=== PATIENT | male | born 1970 | race Caucasian/White ===

== ENCOUNTER 2019-10-26 13:11 | Inpatient (IN) | payer OTHER ==
--- NOTE | 2019-10-26 13:31 | BHS.RME ---
Substance Use & Tx History - Substance Use History Opiates (Heroin) Substance amount: 7 bags Frequency of use: Daily Substance route: Injection (ex: intravenous or skin popping) Date of Last Use: 10/25/19 Cocaine (Crack) Substance amount: $200 Frequency of use: Daily Substance route: Injection (ex: intravenous or skin popping) Date of Last Use: 10/25/19 Physical/Psych/Mental Status - Behavior Eye Contact: Normal - Cooperativeness Cooperativeness: Cooperative - Thinking Thought Processes: Tight Thought content: Future oriented - Physical Health Problems Is patient presently having any pain?: Yes (diffuse aches) Does patient presently have any injuries (include location): No Does patient currently have a fever: No Is patient : No COWS - Scale Resting Pulse: 1= ND 81-100 Sweatin=Flushed/Facial Moisture Restless Observation: 1= Difficult to Sit Still Pupil Size: 0= Normal to Room Light Bone or Joint Aches: 2= Severe Diffuse Aches Runny Nose/ Eye Tearin= Runny Nose/Eyes GI Upset > 30mins: 1= Stomach Cramp Tremor Observation: 2= Slight Tremor Visible Yawning Observation: 0= None Anxiety or Irritability: 0= None Goose Flesh Skin: 0=Smooth Skin COWS Score: 11 CIWA Nausea/Vomitin
[2019-10-26 14:41] VITALS: BMI 27.4
--- NOTE | 2019-10-26 15:11 | HP ---
COWS - Scale Resting Pulse: 1= [place] 81-100 Sweatin=Flushed/Facial Moisture Restless Observation: 1= Difficult to Sit Still Pupil Size: 1= Pupils >than Normal Bone or Joint Aches: 2= Severe Diffuse Aches Runny Nose/ Eye Tearin= Runny Nose/Eyes GI Upset > 30mins: 2= Nausea/Diarrhea Tremor Observation: 2= Slight Tremor Visible Yawning Observation: 0= None Anxiety or Irritability: 2=Irritable/Anxious Goose Flesh Skin: 0=Smooth Skin COWS Score: 15 CIWA Score Nausea/Vomitin - Admission Criteria [facility] Guidelines: Admission for Medically Managed Detox: Requires at least one of the followin. CIWA greater than 12 2. Seizures within the past 24 hours 3. Delirium tremens within the past 24 hours 4. Hallucinations within the past 24 hours 5. Acute intervention needed for co occurring medical disorder 6. Acute intervention needed for co occurring psychiatric disorder 7. Severe withdrawal that cannot be handled at a lower level of care (continued vomiting, continued diarrhea, abnormal vital signs) requiring intravenous medication and/or fluids 8. Admitting History and Physical - Admission Chief Complaint: I need to stop using heroin , I can't keep doing this. History of Present Illness: 49 y/o m pt who started using heroin at age 16 in [place]. Pt has been using 2 bundles of heroin IV /day The pt is also using between $2-300/day iv. The pt states he is not f/up with HIV tx he is just getting high and needs to stop this life style., History Source: Patient Limitations to Obtaining History: No Limitations - Past Medical History Pulmonary: Yes: Other (cough) Renal/: Yes: Cancer (renal) Infectious Disease: Yes: AIDS, Other (HCV) Psych: Yes: Addictions, Depression - Past Surgical History Additional Past Surgical History: rt renal surgery - no nephrectomy - Smoking History Smoking history: Current every day smoker Have you smoked in the past 12 months: Yes Aproximately how many cigarettes per day: 20 - Alcohol/Substance Use Hx Alcohol Use: No - Social History Usual Living Arrangement: Yes: Alone Do you think of yourself as: Straight/Heterosexual ADL: Independent History of Recent Travel: No Admission ROS BHS - HPI Chief Complaint: I need help to stop using heroin and cocaine . m Allergies/Adverse Reactions: Allergies Allergy/AdvReac Type Severity Reaction Status Date / Time No Known Allergies Allergy Verified 10/26/19 14:20 History of Present Illness: see HPI Exam Limitations: No Limitations - Ebola screening Have you traveled outside of the country in the last 21 days: No - Review of Systems Constitutional: Malaise EENT: reports: Hearing Loss (on left) Respiratory: reports: Cough, Productive cough (yellowish phlegm) Cardiac: reports: No Symptoms Reported GI: reports: Nausea, Abdominal cramping Musculoskeletal: reports: Back Pain, Joint Pain, Muscle Weakness Integumentary: reports: Sweating Neuro: reports: No Symptoms reported Endocrine: reports: No Symptoms Reported Hematology: reports: No Symptoms Reported Psychiatric: reports: Depressed Other Systems: Reviewed and Negative Patient History - Patient Medical History Hx Anemia: No Hx Asthma: No Hx Chronic Obstructive Pulmonary Disease (COPD): No Hx Cancer: Yes (2016- rt kidney ca ) Hx Cardiac Disorders: No Hx Congestive Heart Failure: No Hx Hypertension: No Hx Hypercholesterolemia: No Hx Pacemaker: No HX Cerebrovascular Accident: No Hx Seizures: No Hx Dementia: No Hx Diabetes: No Hx Gastrointestinal Disorders: No Hx Liver Disease: No Hx Genitourinary Disorders: Yes (rt kidney ca ) Hx Sexually Transmitted Disorders: No Hx Renal Disease (ESRD): Yes (see above ) Hx Thyroid Disease: No Hx Human Immunodeficiency Virus (HIV): Yes (dx in 1994- no meds x 4 months , genvoya ) Hx Hepatitis C: Yes (2015 tx'ed can't recall med. ) Hx Depression: Yes (no tx x several years ) Hx Suicide Attempt: No Hx Bipolar Disorder: No Hx Schizophrenia: No - Patient Surgical History Hx Genitourinary Surgery: Yes (rt kidney ) - PPD History Previous Implant?: Yes Documented Results: Negative w/o proof - Reproductive History Patient is a Female of Child Bearing Age (11 -55 yrs old): No - Smoking Cessation Smoking history: Current every day smoker Have you smoked in the past 12 months: Yes Aproximately how many cigarettes per day: 20 Cigars Per Day: 0 Hx Chewing Tobacco Use: No Initiated information on smoking cessation: Yes 'Breaking Loose' booklet given: 10/26/19 - Substance & Tx. History Hx Alcohol Use: No Hx Substance Use: Yes Substance Use Type: Cocaine, Heroin Hx Substance Use Treatment: No - Substances abused Cocaine Substance route: Injection Frequency: Daily Amount used: $200-300 Age of first use: 16 Date of last use: 10/26/19 Heroin Substance route: Injection Frequency: Daily Amount used: 2 bundles Age of first use: 16 Date of last use: 10/25/19 Admission Physical Exam [facility] - Vital Signs Vital Signs: Vital Signs - 24 hr 10/26/19 14:32 Temperature 100.8 F H Pulse Rate 92 H Respiratory 18 Rate Blood Pressure 151/82 49 y./o m pt in mild -mod opioid withdrawal . - Physical General Appearance: Yes: Tremorous, Irritable, Sweating, Anxious HEENTM: Yes: EOMI, Normal Voice, JOSEFINA, Other (diminished hearing on the left multiple missing teeth) Respiratory: Yes: Chest Non-Tender, Lungs Clear, Normal Breath Sounds, No Respiratory Distress Neck: Yes: Within Normal Limits, No masses,lesions,Nodules, Trachea in good position Breast: Yes: Within Normal Limits Cardiology: Yes: Regular Rhythm, Regular Rate, S1, S2 Abdominal: Yes: Non Tender, Flat, Soft, Increased Bowel Sounds, Surgical Scar ( well healed umbilical scar rt upper quadrant well healed scar) Genitourinary: Yes: Frequency Musculoskeletal: Yes: Back pain, Other (well healed scar left lower back) Neurological: Yes: manager renewable energy II-XII NML intact, Fully Oriented, Alert, Motor Strength 5/5, Normal Response Integumentary: Yes: Diaphoresis, Other (+ tatoos) Lymphatic: Yes: Within Normal Limits - Diagnostic (1) Opioid dependence with withdrawal Current Visit: Yes Status: Acute (2) Cocaine dependence Current Visit: Yes Status: Acute (3) HIV (human immunodeficiency virus infection) Current Visit: Yes Status: Acute (4) H/O renal cell carcinoma Current Visit: Yes Status: Acute (5) Fever Current Visit: Yes Status: Acute Comment: $8 y/o m pt with Hiv not on meds > 4 months with 1 week h/o cough , fever 100.8 , yellowish phlegm was seen in ED at [place] and given AB's can't recall Name . Cleared for Admission [facility] - Detox or Rehab [facility] Level of Care: Medically Managed Detox Regimen/Protocol: Methadone/Valium Breathalyzer - Breathalyzer Breathalyzer: 0 Urine Drug Screen - Test Device Lot number: [id number] Expiration date: 08/04/21 - Control Is test valid?: Yes - Results Drug screen NEGATIVE: No Urine drug screen results: PIERRE-Cocaine, FEN-Fentanyl, MOP-Opiates Inpatient Rehab Admission - Rehab Decision to Admit Inpatient rehab admission?: No - Initial Determination Are CD services needed?: No Free of communicable disease: Yes Not in need of hospitalization: No - Rehab Admission Criteria Previous failed treatment: Yes Poor recovery environment: Yes Comorbidities: Yes Lacks judgement: No Patient is meeting Inpatient Rehab admission criteria:: Yes
[2019-10-26] MEDS ORDERED: METHOCARBAMOL 500 MG TABLET PO PRN (15:46)
[2019-10-26] MEDS ORDERED: MAGNESIUM CITRATE 300 ML BOTTLE PO PRN (15:46)
[2019-10-26] MEDS ORDERED: clonazePAM 0.5 MG TABLET PO PRN (15:46)
[2019-10-26] MEDS ORDERED: NICOTINE POLACRILEX 4 MG GUM BUC PRN (15:46)
[2019-10-26] MEDS ORDERED: hydrOXYzine PAMOATE 25 MG CAPSULE (FP) PO PRN (15:46)
[2019-10-26] MEDS ORDERED: MELATONIN 5 MG TABLETS PO PRN (15:46)
[2019-10-26] MEDS ORDERED: ACETAMINOPHEN 325 MG TABLET (FP) PO PRN ×2 (15:46)
[2019-10-26] MEDS ORDERED: MENTHOL/PHENOL 1 EACH UD MM PRN (15:46)
[2019-10-26] MEDS ORDERED: IBUPROFEN 400 MG TABLET (FP) PO PRN (15:46)
[2019-10-26] MEDS ORDERED: MAGNESIUM HYDROX 2400MG/30ML ORAL SUSPENSION 30 ML CUP PO PRN (15:46)
[2019-10-26] MEDS ORDERED: BISMUTH SUBSALICYLATE 524 MG/30 ML UD PO PRN (15:46)
[2019-10-26] MEDS ORDERED: MAG HYDROX/AL HYDROX/SIMETH 30 ML UNIT-DOSE CUP PO PRN (15:46)
[2019-10-26] MEDS ORDERED: cloNIDine HCL 0.1 MG TABLET PO PRN (15:46)
[2019-10-26] MEDS ORDERED: METHADONE HCL 10 MG TABLET (FOR DETOX USE ONLY) PO ONE (17:00)
[2019-10-26] MEDS ORDERED: THIAMINE HCL 100 MG TABLET (FP) PO SCH (22:00)
[2019-10-26] MEDS: SULFAMETHOXAZOLE/TRIMETHOPRIM 800MG/160MG D.S. TABLET PO SCH (22:24)
[2019-10-27 06:02] VITALS: BP 181/81; PULSE 100; TEMP 102.4
--- NOTE | 2019-10-27 06:37 | PN ---
KEMI Progress Note Note: Patient was seen and evaluated at bedside. He is febrile (T102.4F), complaining of generalized aches and pain, reports cough for 1 week with yellowish phlegm. Patient states that he has been coughing for a week. He went to [facility] and was prescribed an antibiotic (he does not remember the name) but he did not take it because he was high on heroin. He has H/O HIV + (not compliant with prescribed medication), Hep C and right kidney cancer. This is his first admission to [facility]. There is no available labs. for assessment at this time. Patient is to be transferred to emergency room for further evaluation. Endorsed to Dr. Snider Vital Signs Temperature 102.4 F H 10/27/19 06:01 Pulse Rate 100 H 10/27/19 06:01 Respiratory Rate 20 10/27/19 06:48 Blood Pressure 181/81 H 10/27/19 06:01 O2 Sat by Pulse Oximetry (%) Action: Transfer patient to ER
[2019-10-27] MEDS ORDERED: NICOTINE 21 MG/24 HOURS TOPICAL PATCH TD SCH (10:00)
[2019-10-27] MEDS ORDERED: PRENATAL VITAMINS W/ FOLIC ACID TABLET (FP) PO SCH (10:00)
[2019-10-27] MEDS ORDERED: METHADONE (DETOX) 20 MG, METHADONE (DETOX) 5 MG PO ONE (10:00)
[2019-10-27] MEDS ORDERED: FLU VACCINE QUAD 60 MCG/0.5 ML (MDV 19-20) IM ONE (12:00)
[2019-10-27] MEDS ORDERED: PNEUMOC 13-VAL CONJ-DIP CRM/PF 0.5 ML DISP.SYRIN IM ONE (12:00)
[2019-10-27] MEDS: SULFAMETHOXAZOLE/TRIMETHOPRIM 800MG/160MG D.S. TABLET PO SCH (12:42)
--- NOTE | 2019-10-27 13:32 | PN ---
S Progress Note Note: Psychiatric nurse pracitioner note: Social Secretary unable to complete psychiatric consultation as patient was transferred to the ER this morning. As per STERILIZATION TECH's note patient was febrile (T102.4F), complaining of generalized aches and pain, and reporting cough for 1 week with yellowish phlegm.
--- NOTE | 2019-10-27 18:34 | CONSULT ---
[facility] Psychiatric Consult - Data Date of interview: 10/27/19 Admission source: [facility] Identifying data: Gas Meter Reader attempted to speak to patient but as per nursing staff patient was transferred to ER for further medical workup. Please reorder psychiatric reconsultation as per patient's request.
[2019-10-28] MEDS ORDERED: METHADONE HCL 10 MG TABLET (FOR DETOX USE ONLY) PO ONE (10:00)
[2019-10-29] MEDS ORDERED: METHADONE (DETOX) 10 MG, METHADONE (DETOX) 5 MG PO ONE (10:00)
--- NOTE | 2019-10-29 10:09 | EKG ---
Test Reason : Blood Pressure : / mmHG Vent. Rate : 099 BPM Atrial Rate : 099 BPM P-R Int : 154 ms QRS Dur : 082 ms QT Int : 350 ms P-R-T Axes : 074 018 054 degrees QTc Int : 449 ms NORMAL SINUS RHYTHM NORMAL ECG NO PREVIOUS ECGS AVAILABLE Confirmed by Cat Herring ([id number]) on 10/29/2019 10:09:20 AM Referred By: Confirmed By:Cat Herring
[2019-10-30] MEDS ORDERED: METHADONE HCL 10 MG TABLET (FOR DETOX USE ONLY) PO ONE (10:00)
[2019-10-31] MEDS ORDERED: METHADONE HCL 5 MG TABLET (FOR DETOX USE ONLY) PO ONE (06:00)
== END 2019-10-27 23:00 | disposition short-term general hospital (02) | DRG 773 ==
LOC: YASAS 13:11 → Y6N 15:48
PROVIDERS: ADMIT Allergy & Immunology; ATTEND Allergy & Immunology
PROC: HZ2ZZZZ Detoxification Services for Substance Abuse Treatment (ICD-10-PCS; principal; 2019-10-26)
DX: F11.23 Opioid dependence with withdrawal (principal); F14.20 Cocaine dependence, uncomplicated; F17.210 Nicotine dependence, cigarettes, uncomplicated; F32.9 Major depressive disorder, single episode, unspecified; B20 Human immunodeficiency virus [HIV] disease; B18.2 Chronic viral hepatitis C; R50.9 Fever, unspecified; R05 Cough; Z85.528 Personal history of other malignant neoplasm of kidney
CPT/HCPCS: 93005; 93010; J0735

== ENCOUNTER 2019-10-27 07:18 | Inpatient (IN) | payer OTHER ==
--- NOTE | 2019-10-27 07:36 | PDOC ---
History of Present Illness - General Stated Complaint: FEVER Time Seen by Provider: 10/27/19 07:35 History Source: Patient, Homeowner Association Manager Used Exam Limitations: Language Barrier - History of Present Illness Initial Comments: 49 year old male with PMH HIV not on HAART with unknown CD4/viral load, HCV ( reported treated x1 year ago), renal cancer (s/p reesction 2016), IV heroine abuse (2 bundles a day), IV crack cocaine use daily sent to ED from [facility] for fever, cough, hypoxia. Pt reported he has had a productive yellow cough x2 weeks and developed fever x1 day ago. Pt admitted to generalized weakness, body aches, chest pain, shortness of breath. ROS General: admitted to fever, chills, generalized weakness, body aches. HEENT: denied sore throat, rhinorrhea, ear pain. Cardiovascular: admitted to chest pain. denied palpitations, syncope, diaphoresis. Respiratory: admitted to shortness of breath, cough, sputum production. denied hemoptysis. Gastrointestinal: denied abdominal pain, nausea, vomiting, diarrhea, constipation, blood in stool. Genitourinary: denied dysuria, increased urinary frequency, hematuria, urinary incontinence, flank pain. Back: denied back pain. Musculoskeletal: denied joint pain, muscle pain, joint swelling. Neurological: denied headache, dizziness, numbness, tingling, weakness. Integumentary: denied rash, laceration, abrasion. Hematologic/Lymphatic: denied bruising or bleeding. PE Constitutional: Well-nourished, Well-developed, appearing stated age. HEENT: head is normocephalic, atraumatic. EOMI. PERRLA. Neck: supple. Full ROM. Cardiovascular: regular heart rhythm. Normal S1 and S2. no murmurs. no pericardial friction rub. Respiratory: crackles bilaterally. no wheezing. speaking full sentences. no stridor. Gastrointestinal: soft, flat, nontender. normal bowel sounds. no rebound, guarding, or masses. Extremities: peripheral pulses intact and equal. no lower extremity edema noted. Neurological: CN 2-12 grossly intact. moves all four extremities. Psych: awake, alert, oriented x3. follows commands. answers questions appropriately. Past History - Past Medical History Allergies/Adverse Reactions: Allergies Allergy/AdvReac Type Severity Reaction Status Date / Time No Known Allergies Allergy Verified 10/26/19 14:20 Home Medications: Ambulatory Orders Elviteg/Cob/Emtri/Tenof Alafen [Genvoya Tablet] 1 each PO DAILY 10/26/19 Gabapentin 400 mg PO BID 10/26/19 - Psycho Social/Smoking Cessation Hx Smoking History: Current every day smoker Have you smoked in the past 12 months: Yes Number of Cigarettes Smoked Daily: 20 Cigars Per Day: 0 'Breaking Loose' booklet given: 10/26/19 Hx Alcohol Use: No Drug/Substance Use Hx: Yes Substance Use Type: Cocaine, Heroin Hx Substance Use Treatment: No ED Treatment Course - LABORATORY CBC & Chemistry Diagram: 10/28/19 05:10 10/28/19 05:10 Medical Decision Making - Medical Decision Making 49 year old male with above PMH sent to ED for fever, cough, malaise. Initial Vital Signs Temp Pulse Resp BP Pulse Ox 99.7 F H 98 H 20 134/80 90 L 10/27/19 07:25 10/27/19 07:25 10/27/19 07:25 10/27/19 07:25 10/27/19 07:25 Febrile. Tachycardic. Borderline Tachypnea. Hypertensive. Hypoxia on room air. -Corrected to 94% on 2L O2 Labs ordered: sepsis order set, acute hepatitis panel, procalcitonin, ABG, HIV viral load/CD4, influenza, quantiferon Imaging ordered: CXR, CT chest Medications ordered: normal saline bolus 1000 ccx2, tylenol IV, motrin 600 mg PO once EKG performed at 0759: rate 96, regular rhythm, normal axis, normal intervals, QTc 464, no acute ST changes, no CO depression. Pt placed in isolation. 10/27/19 08:34 Vital Signs Temperature 101.5 F H 10/27/19 07:40 Rectal temperature higher than oral. 10/27/19 10:02 CXR report: Name: [facility] Phys: Lidia Vyas RESIDENT : 1970 Age: 49 Sex: M [facility] Acct: [id number] Loc: [address] Exam Date: 10/27/19 [facility] [place] [address] Unit Number: [id number] EXAM#: TYPE/EXAM: RESULT: [id number] RAD/CHEST X-RAY PORTABLE* Portable chest: Sepsis There are no prior studies for comparison. Single view of the chest has been submitted. There is a prominent heart, normal aorta, prominent cheyanne and some congestive changes with questionable left perihilar early infiltrate. Angles are sharp. The bones and soft tissues are intact. Correlation and follow- up recommended. Reported By: Braydon Hazel MD 10/27/19 0920 Laboratory Last Values WBC 10.7 K/mm3 (4.0-10.0) H 10/27/19 08:03 RBC 3.71 M/mm3 (4.00-5.60) L 10/27/19 08:03 Hgb 10.5 GM/dL (11.7-16.9) L 10/27/19 08:03 Hct 31.1 % (35.4-49) L 10/27/19 08:03 MCV 83.9 fl (80-96) 10/27/19 08:03 MCH 28.2 pg (25.7-33.7) 10/27/19 08:03 MCHC 33.6 g/dl (32.0-35.9) 10/27/19 08:03 RDW 12.0 % (11.9-15.9) 10/27/19 08:03 Plt Count 400 K/MM3 (134-434) 10/27/19 08:03 MPV 7.2 fl (7.5-11.1) L 10/27/19 08:03 Absolute Neuts (auto) 8.0 K/mm3 (1.5-8.0) 10/27/19 08:03 Neutrophils % 74.7 % (42.8-82.8) 10/27/19 08:03 Lymphocytes % 13.9 % (8-40) 10/27/19 08:03 Monocytes % 9.8 % (3.8-10.2) 10/27/19 08:03 Eosinophils % 1.2 % (0-4.5) 10/27/19 08:03 Basophils % 0.4 % (0-2.0) 10/27/19 08:03 Nucleated RBC % 0 % (0-0) 10/27/19 08:03 PT with INR 14.40 SEC (9.7-13.0) H 10/27/19 08:03 INR 1.22 (0.83-1.09) H 10/27/19 08:03 PTT (Actin FS) 27.9 SECONDS (25.2-36.5) 10/27/19 08:03 VBG pH 7.44 (7.31-7.41) H 10/27/19 08:03 POC VBG pCO2 41.1 mmHg (38-52) 10/27/19 08:03 POC VBG pO2 77 mmHg (28-48) H 10/27/19 08:03 VBG HCO3 27.5 mmol/L (23-29) 10/27/19 08:03 VBG O2 Sat (Paras) 95 % (70-80) H 10/27/19 08:03 VBG Base Excess 3.5 meq/l (-2-2) H 10/27/19 08:03 Sodium 132 mmol/L (136-145) L 10/27/19 08:03 Potassium 3.8 mmol/L (3.5-5.1) 10/27/19 08:03 Chloride 100 mmol/L (98-107) 10/27/19 08:03 Carbon Dioxide 28 mmol/L (21-32) 10/27/19 08:03 Anion Gap 4 MMOL/L (8-16) L 10/27/19 08:03 BUN 12.3 mg/dL (7-18) 10/27/19 08:03 Creatinine 1.0 mg/dL (0.55-1.3) 10/27/19 08:03 Est GFR (CKD-EPI)AfAm 103.42 10/27/19 08:03 Est GFR (CKD-EPI)NonAf 89.23 10/27/19 08:03 Random Glucose 137 mg/dL (74-106) H 10/27/19 08:03 Lactic Acid 0.8 mmol/L (0.4-2.0) 10/27/19 08:03 Calcium 8.1 mg/dL (8.5-10.1) L 10/27/19 08:03 Total Bilirubin 0.6 mg/dL (0.2-1) 10/27/19 08:03 AST 60 U/L (15-37) H 10/27/19 08:03 ALT 49 U/L (13-61) 10/27/19 08:03 Alkaline Phosphatase 64 U/L (45-117) 10/27/19 08:03 LD Total 253 U/L (87-246) H 10/27/19 08:03 Troponin I < 0.02 ng/ml (0.00-0.05) 10/27/19 08:03 Total Protein 8.0 g/dl (6.4-8.2) 10/27/19 08:03 Albumin 2.9 g/dl (3.4-5.0) L 10/27/19 08:03 Urine Color Yellow 10/27/19 08:40 Urine Appearance Clear 10/27/19 08:40 Urine pH 7.5 (5.0-8.0) 10/27/19 08:40 Ur Specific [place] 1.016 (1.010-1.035) 10/27/19 08:40 Urine Protein Trace (NEGATIVE) 10/27/19 08:40 Urine Glucose (UA) Negative (NEGATIVE) 10/27/19 08:40 Urine Ketones Negative (NEGATIVE) 10/27/19 08:40 Urine Blood Negative (NEGATIVE) 10/27/19 08:40 Urine Nitrite Negative (NEGATIVE) 10/27/19 08:40 Urine Bilirubin Negative (NEGATIVE) 10/27/19 08:40 Urine Urobilinogen 4.0 e.u/dl mg/dL (0.2-1.0) 10/27/19 08:40 Ur Leukocyte Esterase Negative (NEGATIVE) 10/27/19 08:40 Opiates Screen Positive ng/ml (LFJYDW=104) A* 10/27/19 08:40 Methadone Screen Positive ng/ml (SZYANG=567) A* 10/27/19 08:40 Barbiturate Screen Negative ng/ml (PVAYDT=839) 10/27/19 08:40 Phencyclidine Screen Negative ng/ml (CUTOFF=25) 10/27/19 08:40 Ur Amphetamines Screen Negative ng/ml (WQCCIK=974) 10/27/19 08:40 MDMA (Ecstasy) Screen Negative ng/ml (KOQKHD=332) 10/27/19 08:40 Benzodiazepines Screen Negative ng/ml (FCZCEC=126) 10/27/19 08:40 Cocaine Screen Positive ng/ml (KDJGJV=199) A* 10/27/19 08:40 U Marijuana (THC) Screen Positive ng/ml (CUTOFF=50) A* 10/27/19 08:40 Alcohol, Quantitative < 3 mg/dL (0.0-5.0) 10/27/19 08:03 Pt has pneumonia, immunocompromised by HIV. Will admit for acute respiratory failure 2/2 pneumonia, sepsis. Antibiotics ordered - ceftriaxone + azithromycin + vancomycin 10/27/19 12:26 CT chest report: Name: [facility] Phys: Robin Gupta RESIDENT : 1970 Age: 49 Sex: M [facility] Acct : [id number] Loc: [address] Exam Date: 10/27/19 Status: [place] [address] Unit Number: [id number] EXAM#: TYPE/EXAM: RESULT: [id number] CT/CHEST CT WITHOUT CONTRAST HISTORY PROVIDED: Shortness of breath and productive cough TECHNIQUE: Sequential axial images were obtained from the thoracic inlet through the domes of the diaphragm. Examination of the mediastinum demonstrates enlarged lymph nodes scattered throughout the mediastinal chains. There is no evidence of mediastinal masses or fluid collections. The heart is not significantly enlarged. Evaluation revealed demonstrates patchy pulmonary infiltrates scattered throughout both lungs, most prominent within the upper lobes. There are ill-defined nodules also present bilaterally. This process is most likely infectious/inflammatory in nature. Entities such as sarcoidosis could present similarly. Clinical correlation and follow-up is recommended. No dominant pulmonary masses or pleural effusions are identified. Evaluation of the upper abdomen demonstrates no acute abnormalities. There is no evidence of acute bony pathology. IMPRESSION: 1. Diffuse mediastinal lymphadenopathy. 2. Patchy pulmonary consolidation noted bilaterally. This process is most likely infectious/ inflammatory in nature. Clinical correlation and follow-up recommended. Please see above discussion. Reported By: Alistair Watson MD 10/27 1219 10/27/19 13:11 Discharge - Discharge Information Problems reviewed: Yes Clinical Impression/Diagnosis: History of HIV infection, Pneumonia, Hyponatremia, Noncompliance with medication regimen, Acute respiratory failure Condition: Guarded - Admission Yes - Follow up/Referral - Patient Discharge Instructions - Post Discharge Activity
[2019-10-27] MEDS ORDERED: SODIUM CHLORIDE 2,381 ML IV ONE (07:40)
[2019-10-27] MEDS ORDERED: ACETAMINOPHEN 1000 MG/100 ML VIAL (NON FORMULARY) IVPB ONE (07:40)
[2019-10-27] MEDS ORDERED: IBUPROFEN 600 MG TABLET (FP) PO ONE ×2 (07:40→08:34)
[2019-10-27 07:41] VITALS: BMI 24.4
[2019-10-27] MEDS ORDERED: ACETAMINOPHEN INJECTION 100 ML IVPB ONE (08:35)
[2019-10-27 08:41] LABS: VENOUS PH 7.44 (7.31-7.41)
[2019-10-27 08:42] LABS: VENOUS PC02 41.1 mmHg (38-52)
[2019-10-27 08:44] LABS: BASO % 0.4 % (0-2.0); EOS % 1.2 % (0-4.5); HEMATOCRIT 31.1 % (35.4-49); HEMOGLOBIN 10.5 GM/dL (11.7-16.9); LYMPH % 13.9 % (8-40); MCH 28.2 pg (25.7-33.7); MCHC 33.6 g/dl (32.0-35.9); MEAN CELL VOLUME 83.9 fl (80-96); MEAN PLT VOLUME 7.2 fl (7.5-11.1); MONO % 9.8 % (3.8-10.2); NEUT % 74.7 % (42.8-82.8); PLATELET COUNT 400 K/MM3 (134-434); RBC 3.71 M/mm3 (4.00-5.60); WHITE BLOOD COUNT 10.7 K/mm3 (4.0-10.0)
[2019-10-27 09:01] LABS: PH,URINE 7.5 (5.0-8.0); URINE APPEARANCE CLEAR; URINE BILIRUBIN NEGATIVE (NEGATIVE); URINE COLOR YELLOW; URINE GLUCOSE (UA) NEGATIVE (NEGATIVE); URINE KETONE NEGATIVE (NEGATIVE); URINE LEUK ESTERASE NEGATIVE (NEGATIVE); URINE NITRITE NEGATIVE (NEGATIVE); URINE PROTEIN TRACE (NEGATIVE); URINE UROBILINOGEN 4.0 E.U/dl mg/dL (0.2-1.0)
[2019-10-27 09:07] LABS: INR 1.22 (0.83-1.09); PROTHROMBIN TIME (PATIENT) 14.4 SEC (9.7-13.0)
[2019-10-27 09:09] LABS: LDH 253 U/L (87-246)
[2019-10-27 09:10] LABS: ACTIVATED PTT 27.9 SECONDS (25.2-36.5); ALBUMIN 2.9 g/dl (3.4-5.0); BILIRUBIN,TOTAL 0.6 mg/dL (0.2-1); BLOOD UREA NITROGEN 12.3 mg/dL (7-18); CALCIUM 8.1 mg/dL (8.5-10.1); POTASSIUM 3.8 mmol/L (3.5-5.1)
[2019-10-27 09:12] LABS: PHENCYCLIDINE,URINE NEGATIVE ng/ml (CUTOFF=25); URINE AMPHETAMINES NEGATIVE ng/ml (CUTOFF=500); URINE BARBITURATES NEGATIVE ng/ml (CUTOFF=200); URINE BENZODIAZEPINES NEGATIVE ng/ml (CUTOFF=200)
[2019-10-27 09:14] LABS: COCAINE, UR POSITIVE ng/ml (CUTOFF=300); METHADONE, UR POSITIVE ng/ml (CUTOFF=300); OPIATES, URI POSITIVE ng/ml (CUTOFF=300)
[2019-10-27] MEDS ORDERED: AZITHROMYCIN IVPB 500 MG in DEXTROSE 5%-WATER - 250 ML IVPB ONE (09:33)
[2019-10-27] MEDS ORDERED: CEFTRIAXONE 1 GM in DEXTROSE 5%-WATER - 100 ML IVPB ONE (09:33)
--- NOTE | 2019-10-27 09:44 | PDOC ---
Documentation entered by Walt Mora SCRIBE, acting as scribe for Gautam Castro MD. Gautam Castro MD: This documentation has been prepared by the Morgan romero Angel, SCRIBE, under my direction and personally reviewed by me in its entirety. I confirm that the documentation accurately reflects all work, treatment, procedures, and medical decision making performed by me. Attending Attestation - Resident Resident Name: LilliamLidia - ED Attending Attestation I have performed the following: I have examined & evaluated the patient, The case was reviewed & discussed with the resident, I agree w/resident's findings & plan, Exceptions are as noted - HPI HPI: 10/27/19 09:33 Patient is a 49 year old male with a significant past medical history of HIV ( not on HAART with unknown CD4/viral load), HCV (reported treated x1 year ago), renal cancer (s/p resection 2016), IV heroin/crack cocaine abuse who [facility] for 2 weeks of yellow productive cough, 1 day of fever and hypoxia. Pt reports associated generalized weakness,body aches, chest pain and SOB. Patient denies headache, lightheadedness. Denies nausea, vomiting, diarrhea, abdominal pain. Denies urinary symptoms. Allergies: NKDA - Physicial Exam PE: 10/27/19 09:40 EXAMINATION CONSTITUTIONAL: Awake alert, hypoxemic, in mild respiratory distress HEAD: Normocephalic; atraumatic EYES: PERRL; EOM intact; No icterus ENMT: External appears normal;mm-dry NECK: Supple; non-tender; no cervical lymphadenopathy CARD: Normal S1, S2; no murmurs, rubs, or gallops RESP: Tachycardic, tachypneic and dyspneic; Diffuse rhonchi in all lung cantor; ABD: Soft, non-distended; non-tender; no palpable organomegaly, no palpable hernias EXT: Normal ROM in all four extremities; non-tender to palpation; distal pulses intact SKIN: Warm, dry, +Numerous puncture wounds and track garcia identified NEURO: Somnolent, easily arousable, follows commands, agitated at times, moving all extremities symmetrically - Medical Decision Making 10/27/19 Patient is a 49-year-old male with history of polysubstance abuse, HIV/AIDS, not on HAART presents with fever, cough and hypoxemia. Differential diagnosis includes community-acquired pneumonia versus endocarditis versus PCP pneumonia versus TB versus influenza. Will obtain CBC/CMP/LDH. Will obtain chest x-ray and EKG. Will swab for influenza a/B. Will administer antipyretics and IV fluids. Will consider IV antibiotics plus or minus Vanco/Bactrim. Likely admission.
[2019-10-27] MEDS ORDERED: AZITHROMYCIN IVPB 500 MG/250 ML BAG IVPB ONE (10:00)
[2019-10-27] MEDS ORDERED: CEFTRIAXONE 1 GM/50 ML BAG ONE (10:00)
--- NOTE | 2019-10-27 10:34 | EKG ---
Test Reason : Blood Pressure : / mmHG Vent. Rate : 096 BPM Atrial Rate : 096 BPM P-R Int : 154 ms QRS Dur : 086 ms QT Int : 368 ms P-R-T Axes : 073 017 051 degrees QTc Int : 464 ms NORMAL SINUS RHYTHM MINIMAL VOLTAGE CRITERIA FOR LVH, MAY BE NORMAL VARIANT BORDERLINE ECG NO PREVIOUS ECGS AVAILABLE Confirmed by JASKARAN CROWDER MD ([id number]) on 10/27/2019 10:33:55 AM Referred By: Confirmed By:JASKARAN CROWDER MD
[2019-10-27] MEDS ORDERED: VANCOMYCIN 1,000 MG in DEXTROSE 5%-WATER - 250 ML IVPB ONE (11:16)
[2019-10-27] MEDS ORDERED: VANCOMYCIN 1 GRAM (PRE-DOCKED) 1,000 MG/250 ML BAG IVPB ONE (11:22)
--- NOTE | 2019-10-27 13:36 | HP ---
CHIEF COMPLAINT: shortness of breath, chills PCP: unknown HISTORY OF PRESENT ILLNESS: Patient is a 49 year old male with a significant past medical history of HIV and not currently on HAART medications with an unknown viral count (viral count now pending from ED admission). He also has a history of Hepatitis C, renal surgery 2016?, no nephrectomy per previous notes. He injects crack/cocaine/ heroin mostly on his left mid arm. He began to use heroin at age 16. He uses about 2 bundles of heroin injection per day. Patient was admitted at [facility] on 10/26/2019 for detox and started on a methadone taper. He was sent to [facility] after staff noted he began to have fever, chills and hypoxia. Patient reported two weeks of yellow phelghm. He verbalized chills during exam and limited my exam. He reports generalized weakness and shortness of breath. He denies any chest pain. He denies vomiting, diarrhea, abdominal pain. Denies urinary symptoms. Appears irritable with questions. ER course was notable for: (1) chest ct: diffuse mediastinal lymphadenopathy. pathcy pulmonary infilrates scattered throughout both lungs, most prominent in upper lobes. possible sarcoidosis. patchy pulmonary consolidation noted bilaterally. likely infectious/inflammatory in nature. (2) chest xray 10/27/2019: congestive changes, questionable left perihilar. inf (3) wbc 10.7, na 132 (4) vitals: 90% room air on admission, now on 4 liters nasal cannula. febrile 101.5F, tachycardia 98, leukocytosis 10.7. lactic acid 1.2 (5) negative flu Recent Travel: n/a PAST MEDICAL HISTORY: HIV, hepatitis C, depression/anxiety PAST SURGICAL HISTORY: Social History: Smoking: daily every day smoker Drugs: cocaine/heroin/crack Allergies No Known Allergies Allergy (Verified 10/26/19 14:20) HOME MEDICATIONS: Home Medications Medication Instructions Recorded Elviteg/Cob/Emtri/Tenof Alafen 1 each PO DAILY 10/26/19 [Genvoya Tablet] Gabapentin 400 mg PO BID 10/26/19 REVIEW OF SYSTEMS CONSTITUTIONAL: present: fever, chills, diaphoresis, generalized weakness, malaise, loss of appetite, weight change CARDIOVASCULAR: Absent: chest pain, syncope, palpitations, irregular heart rate, lightheadedness , peripheral edema RESPIRATORY: present: cough, shortness of breath, dyspnea with exertion, orthopnea, wheezing GASTROINTESTINAL: Absent: abdominal pain, abdominal distension, nausea, vomiting, diarrhea, constipation, melena, hematochezia GENITOURINARY: Absent: dysuria, frequency, urgency, hesitancy, hematuria, flank pain, genital pain MUSCULOSKELETAL: Absent: myalgia, arthralgia, joint swelling, back pain, neck pain SKIN: Absent: rash, itching, pallor HEMATOLOGIC/IMMUNOLOGIC: Absent: easy bleeding, easy bruising, lymphadenopathy, frequent infections ENDOCRINE: Absent: unexplained weight gain, unexplained weight loss, heat intolerance, cold intolerance NEUROLOGIC: Absent: headache, focal weakness or paresthesias, dizziness, unsteady gait, seizure, PHYSICAL EXAMINATION Vital Signs - 24 hr 10/27/19 10/27/19 10/27/19 07:25 07:40 11:13 Temperature 99.7 F H 101.5 F H Pulse Rate 98 H Pulse Rate [ 90 Apical] Respiratory 20 19 Rate Blood Pressure 134/80 Blood Pressure 130/76 [Right Arm] O2 Sat by Pulse 90 L 99 99 Oximetry (%) GENERAL: Awake, alert, in mild respiratory distress, no conversational dyspnea HEAD: Normal with no signs of trauma. EYES: Pupils equal, round and reactive to light, extraocular movements intact, sclera anicteric, conjunctiva clear. No lid lag. EARS, NOSE, THROAT: Ears normal, nares patent, oropharynx clear without exudates. Moist mucous membranes. NECK: Normal range of motion, supple without lymphadenopathy, JVD, or masses. LUNGS: dyspnea with diffussed scattered rhonchi in bilateral lungs, on 4 liters nasal cannula HEART: tachycardia, tachypnea, ABDOMEN: Soft, nontender, not distended, normoactive bowel sounds, no guarding MUSCULOSKELETAL: Normal range of motion at all joints. No bony deformities or tenderness. No CVA tenderness. UPPER EXTREMITIES: normal range, numerous track garcia on left mid arm LOWER EXTREMITIES: 2+ pulses, warm, well-perfused. No calf tenderness. No peripheral edema. NEUROLOGICAL: Somnolent, easily arousable, follows commands, agitated at times , moving all extremities symmetrically PSYCHIATRIC: anxious, uncooperative with exam Laboratory Results - last 24 hr 10/27/19 10/27/19 10/27/19 08:03 08:03 08:03 WBC 10.7 H RBC 3.71 L Hgb 10.5 L Hct 31.1 L MCV 83.9 MCH 28.2 MCHC 33.6 RDW 12.0 Plt Count 400 MPV 7.2 L Absolute Neuts (auto) 8.0 Neutrophils % 74.7 Lymphocytes % 13.9 Monocytes % 9.8 Eosinophils % 1.2 Basophils % 0.4 Nucleated RBC % 0 PT with INR 14.40 H INR 1.22 H PTT (Actin FS) 27.9 VBG pH POC VBG pCO2 POC VBG pO2 VBG HCO3 VBG O2 Sat (Paras) VBG Base Excess Sodium Potassium Chloride Carbon Dioxide Anion Gap BUN Creatinine Est GFR (CKD-EPI)AfAm Est GFR (CKD-EPI)NonAf Random Glucose Lactic Acid Calcium Total Bilirubin AST ALT Alkaline Phosphatase LD Total 253 H Troponin I < 0.02 Total Protein Albumin Urine Color Urine Appearance Urine pH Ur Specific [place] Urine Protein Urine Glucose (UA) Urine Ketones Urine Blood Urine Nitrite Urine Bilirubin Urine Urobilinogen Ur Leukocyte Esterase Opiates Screen Methadone Screen Barbiturate Screen Phencyclidine Screen Ur Amphetamines Screen MDMA (Ecstasy) Screen Benzodiazepines Screen Cocaine Screen U Marijuana (THC) Screen Alcohol, Quantitative < 3 10/27/19 10/27/19 10/27/19 08:03 08:03 08:03 WBC RBC Hgb Hct MCV MCH MCHC RDW Plt Count MPV Absolute Neuts (auto) Neutrophils % Lymphocytes % Monocytes % Eosinophils % Basophils % Nucleated RBC % PT with INR INR PTT (Actin FS) VBG pH 7.44 H POC VBG pCO2 41.1 POC VBG pO2 77 H VBG HCO3 27.5 VBG O2 Sat (Paras) 95 H VBG Base Excess 3.5 H Sodium 132 L Potassium 3.8 Chloride 100 Carbon Dioxide 28 Anion Gap 4 L BUN 12.3 Creatinine 1.0 Est GFR (CKD-EPI)AfAm 103.42 Est GFR (CKD-EPI)NonAf 89.23 Random Glucose 137 H Lactic Acid 0.8 Calcium 8.1 L Total Bilirubin 0.6 AST 60 H ALT 49 Alkaline Phosphatase 64 LD Total Troponin I Total Protein 8.0 Albumin 2.9 L Urine Color Urine Appearance Urine pH Ur Specific [place] Urine Protein Urine Glucose (UA) Urine Ketones Urine Blood Urine Nitrite Urine Bilirubin Urine Urobilinogen Ur Leukocyte Esterase Opiates Screen Methadone Screen Barbiturate Screen Phencyclidine Screen Ur Amphetamines Screen MDMA (Ecstasy) Screen Benzodiazepines Screen Cocaine Screen U Marijuana (THC) Screen Alcohol, Quantitative 10/27/19 10/27/19 10/27/19 08:40 08:40 11:00 WBC RBC Hgb Hct MCV MCH MCHC RDW Plt Count MPV Absolute Neuts (auto) Neutrophils % Lymphocytes % Monocytes % Eosinophils % Basophils % Nucleated RBC % PT with INR INR PTT (Actin FS) VBG pH POC VBG pCO2 POC VBG pO2 VBG HCO3 VBG O2 Sat (Paras) VBG Base Excess Sodium Potassium Chloride Carbon Dioxide Anion Gap BUN Creatinine Est GFR (CKD-EPI)AfAm Est GFR (CKD-EPI)NonAf Random Glucose Lactic Acid 1.2 Calcium Total Bilirubin AST ALT Alkaline Phosphatase LD Total Troponin I Total Protein Albumin Urine Color Yellow Urine Appearance Clear Urine pH 7.5 Ur Specific [place] 1.016 Urine Protein Trace Urine Glucose (UA) Negative Urine Ketones Negative Urine Blood Negative Urine Nitrite Negative Urine Bilirubin Negative Urine Urobilinogen 4.0 e.u/dl Ur Leukocyte Esterase Negative Opiates Screen Positive A* Methadone Screen Positive A* Barbiturate Screen Negative Phencyclidine Screen Negative Ur Amphetamines Screen Negative MDMA (Ecstasy) Screen Negative Benzodiazepines Screen Negative Cocaine Screen Positive A* U Marijuana (THC) Screen Positive A* Alcohol, Quantitative ASSESSMENT/PLAN: Problem List - Problem (1) Acute respiratory failure Assessment/Plan: Patient admitted from [facility] with cough, fever and hemoptosys. being ruled out for TB currently. Chest Ct show bilateral infiltrates/penumonia. Also with a wet cough and congestion on exam. Requires 4 liters of nasal cannula to maintain oxygen saturations above 90%. concern for PCP given patient's lack of medical management of HIV Negative for flu On Vancomycin/zosyn for now Code(s): J96.00 - ACUTE RESPIRATORY FAILURE, UNSP W HYPOXIA OR HYPERCAPNIA (2) Pneumonia Code(s): J18.9 - PNEUMONIA, UNSPECIFIED ORGANISM (3) Severe sepsis Assessment/Plan: Patient with elevated WBC, Tachycardia, Fever and hypoxia on antibiotic therapy for possible community acquired pneumonia blood and urine cultures pending Code(s): A41.9 - SEPSIS, UNSPECIFIED ORGANISM; R65.20 - SEVERE SEPSIS WITHOUT SEPTIC SHOCK (4) Cocaine dependence Assessment/Plan: On methadone/clonopin taper Code(s): F14.20 - COCAINE DEPENDENCE, UNCOMPLICATED (5) Fever Assessment/Plan: High grade fevers on admission tylenol prn Started on zosyn and vancomycin Code(s): R50.9 - FEVER, UNSPECIFIED (6) H/O renal cell carcinoma Assessment/Plan: monitor intake and output for renal ultrasound once patient's breathing is more stable Code(s): Z85.528 - PERSONAL HISTORY OF OTHER MALIGNANT NEOPLASM OF KIDNEY (7) HIV (human immunodeficiency virus infection) Assessment/Plan: not on HAART therapy. Immunology levels pending Code(s): B20 - HUMAN IMMUNODEFICIENCY VIRUS [HIV] DISEASE (8) Hyponatremia Assessment/Plan: Monitor daily with labs Code(s): E87.1 - HYPO-OSMOLALITY AND HYPONATREMIA (9) Noncompliance with medication regimen Assessment/Plan: Patient does not offer reasons why he is non compliant with medication regimen Code(s): Z91.14 - PATIENT'S OTHER NONCOMPLIANCE WITH MEDICATION REGIMEN (10) Opioid dependence with withdrawal Assessment/Plan: will continue Methadone tape as per [facility] Clonopin prn Code(s): F11.23 - OPIOID DEPENDENCE WITH WITHDRAWAL (11) Prophylactic measure Code(s): Z29.9 - ENCOUNTER FOR PROPHYLACTIC MEASURES, UNSPECIFIED Visit type - Emergency Visit Emergency Visit: Yes ED Registration Date: 10/27/19 Care time: The patient presented to the Emergency Department on the above date and was hospitalized for further evaluation of their emergent condition. - New Patient This patient is new to me today: Yes Date on this admission: 10/27/19 - Critical Care Critical Care patient: No
[2019-10-27] MEDS ORDERED: ACETAMINOPHEN 325 MG TABLET (FP) PO PRN (13:50)
[2019-10-27] MEDS ORDERED: hydrOXYzine PAMOATE 25 MG CAPSULE (FP) PO PRN (13:51)
[2019-10-27] MEDS ORDERED: NICOTINE POLACRILEX 4 MG GUM BUC PRN (13:53)
[2019-10-27] MEDS ORDERED: cloNIDine HCL 0.1 MG TABLET PO PRN (13:54)
[2019-10-27] MEDS ORDERED: METHOCARBAMOL 500 MG TABLET PO PRN (13:55)
[2019-10-27] MEDS ORDERED: MAG HYDROX/AL HYDROX/SIMETH 30 ML UNIT-DOSE CUP PO PRN (13:57)
--- NOTE | 2019-10-27 14:23 | PN ---
Progress Note (short form) - Note Progress Note: ID consulted dictated history via spansih speaking interpretor (limited by patient cooperation), and from chart imp/reccd 49 yo man active ivdu- heroine/cocaine, cigarette smoker homeless reports history of prior positive ppd hep c not treated hiv from 1994- no meds kidney cancer no medical care admitted with cough, fever, hemoptysis chest ct with bilateral infiltrates cat scan not convincing for PCP diff dx includes community acquired pneumonia TB endocarditis with pulmonary emboli less likely malignancy cultures fungitell afb isolation sputum afb influenza screen legionella urinary antigen vancomycin/zosyn for now cd4 count
[2019-10-27] MEDS ORDERED: PIPERACILLIN/TAZOB 3.375 GM 3.375 GM in DEXTROSE 5%-WATER - 50 ML IVPB SCH (14:45)
--- NOTE | 2019-10-27 15:00 | CONS ---
INFECTIOUS DISEASE CONSULTATION DATE OF CONSULTATION: DATE OF DICTATION: 10/27/2019 HISTORY OF PRESENT ILLNESS: This is a 49-year-old man who was sent from detox for admission for a fever and cough. History was obtained from the patient who is tired of giving history. It was obtained through a retail beauty specialist. He is very limited in his history, and keeps referring me to his chart, so the rest of the history was obtained from the chart. He was originally admitted on the to [facility] for polysubstance use. He has a history of heroin use from age 16 and has been using IV heroin. As well, per the behavioral medicine assessment, he is using cocaine. He is also a cigarette smoker. He reported to the detox service that he was seen for fever and cough at [facility] a week ago. He was prescribed an antibiotic which he did not take. He was admitted on the to the detox. On morning, he was noted to have fever of 102, complained of generalized aches and pains, and was transferred to the ER. Further history, he notes that he has had some hemoptysis and that he has had weight loss. He denies vomiting. He denies diarrhea. He is an active IV drug user and he injects in his arms. He has no medical care. He was diagnosed with HIV in 1994. He does not take any medications. He also has a history of hepatitis C and apparently right kidney cancer. When he presented to the ER, he was noted to have fever and he was noted to be hypoxic with a pulse oximetry of 90 and to have a moist cough. He was found to have bilateral pneumonia and admitted for further evaluation. I am asked to see him regarding this. PAST MEDICAL HISTORY: Notable for right kidney cancer and he has a history of substance use. He states that he does not take any medicines as an outpatient and that he has no known drug allergies. He reports that he is currently homeless and living on the street and that there is no history of any travel. He is originally from [place] and then he has never been in [place]. Of note, he reports he is PPD positive and he has never been treated. REVIEW OF SYSTEMS: Limited, but is as per HPI. PHYSICAL EXAMINATION: General: He is resting comfortably in bed. He is alert and oriented. Vital Signs: Temperature is 101.5, pulse of 90, blood pressure is 130/76, respiratory rate is 18, he is apparently saturating 90% on room air. HEENT: He has no conjunctival hemorrhages. He has no thrush. Neck: Supple. Lungs: Have scattered rhonchi. Heart: Regular rate and rhythm. Abdomen: Soft. Nontender. Extremities: He apparently injects in his right and left antecubital areas. His extremities are without edema. LABORATORIES: Notable for a white count of 10.7, hemoglobin 10.5, platelets of 400,000. INR is 1.22. His BUN and creatinine are 12 and 1. His AST is 60. He reports he has untreated hepatitis C. LDH is 253; upper limit of normal is 246. Urinalysis is negative. Toxicology screen is positive for opiates, methadone, cocaine, and marijuana. T cells are pending. His hepatitis serology is pending. Blood cultures have been sent, as well as urine cultures. IMAGING: He had a chest x-ray done that showed congestive changes with a questionable left perihilar early infiltrate. He had a chest CT done that showed diffuse mediastinal adenopathy, patchy bilateral infiltrates with some ill-defined nodules. In summary, this is a 49-year-old man admitted to the hospital with bilateral pneumonia. Cannot rule out TB with history of positive PPD and hemoptysis. Cannot rule out endocarditis in the setting of active substance use. Blood cultures have been sent. He has been given vancomycin, ceftriaxone, and Zithromax. Would continue the vancomycin and would switch him to Zosyn, at this time. Would obtain a legionella urinary antigen. Would obtain influenza screening. He should be in isolation. Sputum AFBs and sputum AFB PCRs have all been ordered. Would obtain a routine sputum culture, as well. He will need detox to evaluate him, as well. Further recommendations to follow. AMERICO JAMIL M.D. [id number]
[2019-10-27] MEDS: ALBUTEROL SO4 2.5/IPRATROPIUM 0.5 INH SOL 3 ML VIAL.NEB. NEB SCH ×2 (15:09→20:30)
[2019-10-27] MEDS: PIPERACILLIN/TAZOB 3.375 GM 3.375 GM in DEXTROSE 5%-WATER - 50 ML IVPB SCH ×2 (15:09→21:40)
[2019-10-27] MEDS ORDERED: PIPERACILLIN/TAZOB 3.375 GM 3.375 GM/50 ML BAG IVPB ONE (15:10)
[2019-10-27] MEDS ORDERED: PT OWN MED DRAWER 7, Y5N ONE (20:11)
[2019-10-27] MEDS ORDERED: PIPERACILLIN/TAZOBACTAM 3.375 GM VIAL IVPB ONE (21:04)
[2019-10-27] MEDS ORDERED: DEXTROSE 5%-WATER - 50 ML IVPB ONE (21:04)
[2019-10-27] MEDS ORDERED: METHADONE HCL 10 MG TABLET PO ONE (21:08)
[2019-10-27] MEDS: GABAPENTIN 400 MG CAPSULE PO SCH (21:42)
[2019-10-27] MEDS: clonazePAM 0.5 MG TABLET PO PRN (21:44)
[2019-10-27] MEDS ORDERED: GABAPENTIN 400 MG CAPSULE PO SCH (22:00)
--- NOTE | 2019-10-27 23:06 | PN ---
Progress Note (short form) - Note Progress Note: Evaluated Pt, appeared to be withdrawing COWS of 14. changed methadone detox to start today.
[2019-10-28] MEDS: ALBUTEROL SO4 2.5/IPRATROPIUM 0.5 INH SOL 3 ML VIAL.NEB. NEB SCH ×6 (00:14→20:10)
[2019-10-28] MEDS: VANCOMYCIN HCL 1,250 MG in DEXTROSE 5%-WATER - 250 ML IVPB SCH ×3 (00:46→23:49)
[2019-10-28] MEDS ORDERED: DEXTROSE 5%-WATER - 50 ML IVPB ONE ×4 (03:21→21:05)
[2019-10-28] MEDS ORDERED: PIPERACILLIN/TAZOBACTAM 3.375 GM VIAL IVPB ONE ×4 (03:21→21:04)
[2019-10-28] MEDS: PIPERACILLIN/TAZOB 3.375 GM 3.375 GM in DEXTROSE 5%-WATER - 50 ML IVPB SCH ×4 (03:30→21:21)
[2019-10-28] MEDS: GABAPENTIN 400 MG CAPSULE PO SCH ×3 (09:43→23:49)
[2019-10-28] MEDS ORDERED: PT OWN MED DRAWER 7, Y5N ONE ×2 (09:52→10:50)
[2019-10-28 09:56] LABS: BASO % 0.8 % (0-2.0); EOS % 6.4 % (0-4.5); HEMATOCRIT 30.8 % (35.4-49); HEMOGLOBIN 10.1 GM/dL (11.7-16.9); LYMPH % 26.8 % (8-40); MCH 28.3 pg (25.7-33.7); MCHC 32.8 g/dl (32.0-35.9); MEAN CELL VOLUME 86.2 fl (80-96); MEAN PLT VOLUME 7.7 fl (7.5-11.1); MONO % 15.4 % (3.8-10.2); NEUT % 50.6 % (42.8-82.8); PLATELET COUNT 396 K/MM3 (134-434); RBC 3.58 M/mm3 (4.00-5.60); RDW 12.5 % (11.9-15.9); WHITE BLOOD COUNT 7.5 K/mm3 (4.0-10.0)
[2019-10-28] MEDS ORDERED: METHADONE HCL 10 MG TABLET PO ONE ×2 (10:00→21:59)
[2019-10-28] MEDS ORDERED: NICOTINE 21 MG/24 HOURS TOPICAL PATCH TD SCH (10:00)
[2019-10-28] MEDS ORDERED: PRENATAL VITAMINS W/ FOLIC ACID TABLET (FP) PO SCH (10:00)
[2019-10-28] MEDS ORDERED: METHADONE HCL 5 MG TABLET (FOR DETOX USE ONLY) PO ONE (10:00)
[2019-10-28] MEDS ORDERED: ENOXAPARIN NA (PORCINE) 40 MG/0.4 ML DISP.SYRIN SQ SCH (10:00)
[2019-10-28 10:17] LABS: ALBUMIN 2.6 g/dl (3.4-5.0); BILIRUBIN,TOTAL 0.6 mg/dL (0.2-1); BLOOD UREA NITROGEN 8.9 mg/dL (7-18); CALCIUM 8.5 mg/dL (8.5-10.1); CREATININE 1.1 mg/dL (0.55-1.3); MAGNESIUM 2.4 mg/dL (1.8-2.4); TOT PROT 7.8 g/dl (6.4-8.2)
--- NOTE | 2019-10-28 11:29 | PN ---
Progress Note (short form) - Note Progress Note: PULMONARY CONSULTATION DICTATED 10/28/19 IMP BILATERAL PATCHY INFILTRATES LIKELY INFECTIOUS ? BACTERIAL,?ENDOCARDITIS,?TB ,? INFLAMMATORY ,?MALIGNANT HIV IVDA H/O RENAL CELL CA S/P RESECTION H/O HEP C PLAN ABX PER ID CULTURES,AFB NASAL O2 ECHO CD4 CT F/U CHEST X-RAYS INHALED BRONCHODILATORS F/U CHEST CT OUTPATIENT TO CONFIRM RESOLUTION OF INFILTRATES, MEDIASTINAL ADENOPATHY DR ANDERSON Problem List - Problems (1) History of HIV infection Code(s): B20 - HUMAN IMMUNODEFICIENCY VIRUS [HIV] DISEASE (2) Pneumonia Code(s): J18.9 - PNEUMONIA, UNSPECIFIED ORGANISM (3) Cocaine dependence Code(s): F14.20 - COCAINE DEPENDENCE, UNCOMPLICATED (4) Fever Code(s): R50.9 - FEVER, UNSPECIFIED (5) H/O renal cell carcinoma Code(s): Z85.528 - PERSONAL HISTORY OF OTHER MALIGNANT NEOPLASM OF KIDNEY (6) HIV (human immunodeficiency virus infection) Code(s): B20 - HUMAN IMMUNODEFICIENCY VIRUS [HIV] DISEASE
[2019-10-28 11:43] LABS: INR 1.17 (0.83-1.09); PROTHROMBIN TIME (PATIENT) 13.8 SEC (9.7-13.0)
--- NOTE | 2019-10-28 11:47 | PN ---
Progress Note (short form) - Note Progress Note: feels better no fever copious sputum Vital Signs Period Temp Pulse Resp BP Sys/Jo Pulse Ox Last 24 Hr 98.2 F-101 F 78-88 19-24 128-153/76-97 98-98 cor-rrr lungs scattered rhonchi abd soft,nt ext no edema CBC, BMP 10/28/19 05:10 10/28/19 05:10 Microbiology 10/27/19 08:50 Urine - Urine Clean Catch Urine Culture - Final NO GROWTH OBTAINED 10/28/19 09:30 Sputum - Expectorated AFB Smear Concentration - Preliminary 10/28/19 09:30 Sputum - Expectorated Mycobacterial Culture - Preliminary 10/27/19 08:37 Blood - Peripheral Venous Blood Culture - Preliminary NO GROWTH OBTAINED AFTER 24 HOURS, INCUBATION TO CONTINUE FOR 4 DAYS. 10/27/19 08:40 Blood - Peripheral Venous Blood Culture - Preliminary NO GROWTH OBTAINED AFTER 24 HOURS, INCUBATION TO CONTINUE FOR 4 DAYS. a/p bilateral pneumonia hiv ?+PPD-per patient history history HCV- untreated diff dx includes community acquired pneumonia TB endocarditis with pulmonary emboli less likely malignancy cultures fungitell afb isolation sputum afb legionella urinary antigen vancomycin/zosyn
--- NOTE | 2019-10-28 12:15 | PN ---
Physical Exam: SUBJECTIVE: Patient seen and examined. more cooperative today and tolerating room air. states he feels better, but uses drugs to help him deal with depression over his family situation, feels alone. Has attempted to commit suicide in the past by cutting his arm so he can bleed out but denies any current suicide ideation. denies any malaise. also reports a fall a few years ago and fractured his left ankle but no surgery was performed. he denies shortness of breath or hemoptysis, denies any chest pain. OBJECTIVE: left ankle fx no surgery - no edema left arm self inflicted cuts-healed ---- Patient is a 49 year old male with a significant past medical history of HIV and not currently on HAART medications with an unknown viral count (viral count now pending from ED admission). He also has a history of Hepatitis C, renal surgery 2016?, no nephrectomy per previous notes. He injects crack/cocaine/ heroin mostly on his left mid arm. He began to use heroin at age 16. He uses about 2 bundles of heroin injection per day. Patient was admitted at [facility] on 10/26/2019 for detox and started on a methadone taper. He was sent to [facility] after staff noted he began to have fever, chills and hypoxia. Patient reported two weeks of yellow phelghm. He verbalized chills during exam and limited my exam. He reports generalized weakness and shortness of breath. Vital Signs Period Temp Pulse Resp BP Sys/Jo Pulse Ox Last 24 Hr 98.2 F-101 F 78-88 19-24 128-153/76-97 98-98 GENERAL: Awake, alert, in no acute respiratory distress, no conversational dyspnea, tolerating room air HEAD: Normal with no signs of trauma. EYES: Pupils equal, round and reactive to light, extraocular movements intact, sclera anicteric, conjunctiva clear. No lid lag. EARS, NOSE, THROAT: Ears normal, nares patent, oropharynx clear without exudates. Moist mucous membranes. NECK: Normal range of motion, supple without lymphadenopathy, JVD, or masses. LUNGS: room air, lungs with scattered rhonchi, but improving. HEART: rrr ABDOMEN: Soft, nontender, not distended, normoactive bowel sounds, no guarding MUSCULOSKELETAL: Normal range of motion at all joints. No bony deformities or tenderness. No CVA tenderness. UPPER EXTREMITIES: normal range, numerous track garcia on left mid arm LOWER EXTREMITIES: 2+ pulses, warm, well-perfused. No calf tenderness. No peripheral edema. Laboratory Results - last 24 hr 10/27/19 10/27/19 10/27/19 08:03 11:00 15:30 WBC RBC Hgb Hct MCV MCH MCHC RDW Plt Count MPV Absolute Neuts (auto) Neutrophils % Lymphocytes % Monocytes % Eosinophils % Basophils % Nucleated RBC % PT with INR INR Sodium Potassium Chloride Carbon Dioxide Anion Gap BUN Creatinine Est GFR (CKD-EPI)AfAm Est GFR (CKD-EPI)NonAf Random Glucose Lactic Acid 1.2 Calcium Magnesium Total Bilirubin AST ALT Alkaline Phosphatase Total Protein Albumin Hep A IgM Ab Confirm Negative Hep Bs Antigen Negative Hep B Core IgM Ab Negative Hepatitis C Ab (EIA) >11.0 H Influenza A (Rapid) Negative Influenza B (Rapid) Negative 10/28/19 10/28/19 10/28/19 05:10 05:10 11:07 WBC 7.5 RBC 3.58 L Hgb 10.1 L Hct 30.8 L MCV 86.2 MCH 28.3 MCHC 32.8 RDW 12.5 Plt Count 396 MPV 7.7 Absolute Neuts (auto) 3.8 Neutrophils % 50.6 D Lymphocytes % 26.8 D Monocytes % 15.4 H Eosinophils % 6.4 H D Basophils % 0.8 Nucleated RBC % 0 PT with INR 13.80 H INR 1.17 H Sodium 136 Potassium 4.0 Chloride 104 Carbon Dioxide 27 Anion Gap 6 L BUN 8.9 Creatinine 1.1 Est GFR (CKD-EPI)AfAm 92.16 Est GFR (CKD-EPI)NonAf 79.52 Random Glucose 94 Lactic Acid Calcium 8.5 Magnesium 2.4 Total Bilirubin 0.6 AST 47 H ALT 45 Alkaline Phosphatase 58 Total Protein 7.8 Albumin 2.6 L Hep A IgM Ab Confirm Hep Bs Antigen Hep B Core IgM Ab Hepatitis C Ab (EIA) Influenza A (Rapid) Influenza B (Rapid) Active Medications Generic Name Dose Route Start Last Admin Trade Name Freq PRN Reason Stop Dose Admin Acetaminophen 650 mg 10/27/19 13:50 Tylenol - PO Q6H PRN FEVER Al Hydroxide/Mg Hydroxide 30 ml 10/27/19 13:57 Mylanta Oral Suspension - PO Q6H PRN DYSPEPSIA Albuterol/Ipratropium 1 amp 02/22/20 16:00 10/28/19 11:55 Duoneb - NEB 1 amp RQ4H CAT Administration Clonazepam 0.5 mg 10/27/19 13:54 10/27/19 21:44 Klonopin - PO 0.5 mg Q6H PRN Administration ANXIETY Clonidine 0.1 mg 10/27/19 13:54 10/27/19 21:43 Catapres - PO 0.1 mg Q4H PRN Administration WITHDRAWAL(CONT SUBST) Enoxaparin Sodium 40 mg 10/28/19 10:00 10/28/19 09:45 Lovenox - SQ 40 mg DAILY CAT Administration Gabapentin 400 mg 10/27/19 22:00 10/28/19 09:43 Neurontin - PO 400 mg BID CAT Administration Hydroxyzine Pamoate 25 mg 10/27/19 13:51 Vistaril - PO Q6HPO PRN ANXIETY Vancomycin HCl 1,250 mg/ 250 mls @ 166.667 mls/hr 10/27/19 23:55 10/28/19 11: 16 Dextrose IVPB 166.667 mls/hr Q12H CAT Administration Protocol Piperacillin Sod/Tazobactam 50 mls @ 100 mls/hr 10/27/19 15:00 10/28/19 09:43 Sod 3.375 gm/ Dextrose IVPB 100 mls/hr Q6H-IV CAT Administration Protocol Methadone HCl 10 mg 10/29/19 10:00 Dolophine - PO 10/29/19 10:01 ONCE ONE Methadone HCl 5 mg 10/30/19 06:00 Dolophine - PO 10/30/19 06:01 ONCE ONE Methocarbamol 500 mg 10/27/19 13:55 Robaxin - PO Q6H PRN MUSCLE SPASMS Nicotine 21 mg 10/28/19 10:00 10/28/19 09:43 Nicoderm Patch - TD 21 mg DAILY CAT Administration Nicotine Polacrilex 4 mg 10/27/19 13:53 Nicorette Gum - BUC Q2H PRN NICOTINE REPLACEMENT RX Multivit/Folic Acid/Iron 1 tab 10/28/19 10:00 10/28/19 09:54 Vitamins (Sjr) - PO 1 tab DAILY CAT Administration ASSESSMENT/PLAN: Problem List - Problems (1) Acute respiratory failure Assessment/Plan: Patient admitted from [facility] with cough, fever and hemoptosys. being ruled out for TB currently. Chest Ct show bilateral infiltrates/penumonia. Also with a wet cough and congestion on exam. concern for PCP given patient's lack of medical management of HIV Negative for flu On Vancomycin/zosyn for now per ID pending cultures Code(s): J96.00 - ACUTE RESPIRATORY FAILURE, UNSP W HYPOXIA OR HYPERCAPNIA (2) Pneumonia Code(s): J18.9 - PNEUMONIA, UNSPECIFIED ORGANISM (3) Severe sepsis Assessment/Plan: Patient with elevated WBC, Tachycardia, Fever and hypoxia on antibiotic therapy for possible community acquired pneumonia blood and urine cultures pending Code(s): A41.9 - SEPSIS, UNSPECIFIED ORGANISM; R65.20 - SEVERE SEPSIS WITHOUT SEPTIC SHOCK (4) Cocaine dependence Assessment/Plan: On methadone/clonopin taper Code(s): F14.20 - COCAINE DEPENDENCE, UNCOMPLICATED (5) Fever Assessment/Plan: resolved Code(s): R50.9 - FEVER, UNSPECIFIED (6) H/O renal cell carcinoma Code(s): Z85.528 - PERSONAL HISTORY OF OTHER MALIGNANT NEOPLASM OF KIDNEY (7) HIV (human immunodeficiency virus infection) Assessment/Plan: not on HAART therapy. Immunology levels pending Code(s): B20 - HUMAN IMMUNODEFICIENCY VIRUS [HIV] DISEASE (8) Hyponatremia Assessment/Plan: Monitor daily with labs Code(s): E87.1 - HYPO-OSMOLALITY AND HYPONATREMIA (9) Noncompliance with medication regimen Assessment/Plan: Patient does not offer reasons why he is non compliant with medication regimen Code(s): Z91.14 - PATIENT'S OTHER NONCOMPLIANCE WITH MEDICATION REGIMEN (10) Opioid dependence with withdrawal Assessment/Plan: will continue Methadone tape as per [facility] Clonopin prn Code(s): F11.23 - OPIOID DEPENDENCE WITH WITHDRAWAL (11) Prophylactic measure Code(s): Z29.9 - ENCOUNTER FOR PROPHYLACTIC MEASURES, UNSPECIFIED Visit type - Emergency Visit Emergency Visit: Yes ED Registration Date: 10/27/19 Care time: The patient presented to the Emergency Department on the above date and was hospitalized for further evaluation of their emergent condition. - New Patient This patient is new to me today: No - Critical Care Critical Care patient: No - Discharge Referral Referred to [facility] Med P.C.: No
--- NOTE | 2019-10-28 18:10 | CONS ---
DATE OF CONSULTATION: 10/28/2019 REFERRING PROVIDER: JOSE Mancia The patient is a 49-year-old male with an extensive past medical history that includes hepatitis C, history of HIV, currently not on HAART, history of renal cell CA, status post right nephrectomy in 2016 a [facility], history of tobacco use, approximately 3 to 4 packs per day since June, substance abuse IVDA cocaine and heroin, admitted to [facility] with fevers, chills, and hypoxemia. Patient apparently was admitted to [facility] on October 26 for detox, started on methadone taper. Apparently while there, he started developing fevers, chills, hypoxia, and was transferred to [facility] ER. He also complains of 2-week history of cough, chest congestion, and white-yellow sputum, questionable hemoptysis. In the ER, he was noted on CAT scan to have bilateral patchy infiltrates and nodular densities. He was placed on respiratory isolation, transferred to the medical floor and started on broad-spectrum antibiotics per Infectious Disease. He was also noted to have diffuse mediastinal adenopathy. The patient has weight loss and sweats. Denies any chest pains or palpitations. He does complain of shortness of breath. There was no history of recent travel. He previously was employed in construction. Past medical history, again, includes history of hepatitis C; renal cell CA, status post right nephrectomy in 2016 at [place]; also HIV, currently not on HAART therapy. REVIEW OF SYSTEMS: Positive fever, positive chills, positive weight loss, positive sweats. Questionable hemoptysis. Positive shortness of breath. SOCIAL HISTORY: Born in [place], moved to the [facility] 11 years ago. Previously employed in construction. Current medications include piperacillin, vancomycin, Lovenox, Neurontin, Vistaril, NicoDerm patch, Nicorette gum, Klonopin, DuoNeb, Catapres, and Robaxin, Dolophine. PHYSICAL EXAMINATION: General: The patient is a well-developed, well-nourished male, awake, alert, in no acute distress. Vital Signs: He is currently afebrile. T-max on admission was 101.5. Blood pressure is 131/90. Respiratory rate is 22. O2 saturation is 98% on 2 L nasal cannula. HEENT: Normocephalic, atraumatic. Neck: Supple. Heart: Regular, S1, S2. Chest: Bilateral wheezes and rhonchi. Abdomen: Soft. Bowel sounds positive. Extremities: No cyanosis, edema. LABORATORY DATA: WBC: Hepatitis C antibody is greater than 11, WBC is 7.5, hemoglobin 10.1, hematocrit 30.8, with a platelet count of 396,000, INR is 1.17. Venous blood gas peaked at 7.44, pCO2 of 41, pO2 of 77. Chemistries: BUN 8, creatinine 1.1. Chest CT: Again, extensive mediastinal adenopathy, patchy pulmonary consolidations bilaterally. Ill-defined nodular densities bilaterally. IMPRESSION: 1. Bilateral patchy infiltrates, nodular densities, most likely infectious, rule out bacterial. Cannot exclude possible endocarditis in view of long-standing history of IVDA. Rule out tuberculosis as well as opportunistic infections. Rule out inflammatory. Rule out possible malignant, with a history of renal cell carcinoma. 2. Human immunodeficiency virus. 3. Mediastinal adenopathy, possibly reactive. Cannot exclude malignant as well as infectious or inflammatory. 4. History of IV drug abuse. 5. History of renal cell carcinoma, status post resection. 6. History of hepatitis C. PLAN: Continue antibiotics as per Infectious Disease. Obtain cultures, obtain echo, CD4 count, HIV and serology. Obtain follow up chest x-rays as well as followup chest CT as outpatient. Inhaled bronchodilators. TRISTON ANDERSON M.D. THOMAS/[id number]
[2019-10-28] MEDS: clonazePAM 0.5 MG TABLET PO PRN (21:21)
--- NOTE | 2019-10-28 23:15 | PN ---
Progress Note (short form) - Note Progress Note: Received page from nursing staff patient would like to leave against medical advice. Spoke with patient, refusing current treatment and would like to leave. I explained the risks of leaving AMA and not receiving treatment for likely pneumonia. Patient had AFB smear sent to lab; final report pending. If + will need to contact department of health. Patient understands the risks of leaving against medical advice and health risks associated with not receiving treatment. 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
[2019-10-28 23:21] VITALS: BP 135/81; PULSE 93
[2019-10-28 23:56] VITALS: TEMP 98.2
[2019-10-29] MEDS: ALBUTEROL SO4 2.5/IPRATROPIUM 0.5 INH SOL 3 ML VIAL.NEB. NEB SCH (00:25)
[2019-10-29] MEDS ORDERED: METHADONE HCL 10 MG TABLET (FOR DETOX USE ONLY) PO ONE (10:00)
[2019-10-29] MEDS ORDERED: METHADONE HCL 5 MG TABLET PO ONE (10:00)
[2019-10-30] MEDS ORDERED: METHADONE HCL 5 MG TABLET (FOR DETOX USE ONLY) PO ONE (06:00)
[2019-10-30] MEDS ORDERED: METHADONE HCL 10 MG TABLET PO ONE (10:00)
[2019-10-31] MEDS ORDERED: METHADONE HCL 5 MG TABLET PO ONE (10:00)
== END 2019-10-28 23:35 | disposition left against medical advice (07) | DRG 720 ==
LOC: JER 07:18 → JERBED 11:19 → J4W 16:25
PROVIDERS: ADMIT Internal Medicine; ATTEND Nurse Practitioner Family
DX: A41.89 Other specified sepsis (principal); R65.20 Severe sepsis without septic shock; R09.02 Hypoxemia; J18.9 Pneumonia, unspecified organism; F14.20 Cocaine dependence, uncomplicated; R50.9 Fever, unspecified; R00.0 Tachycardia, unspecified; F11.23 Opioid dependence with withdrawal; Z21 Asymptomatic human immunodeficiency virus [HIV] infection status; E87.1 Hypo-osmolality and hyponatremia; J96.00 Acute respiratory failure, unspecified whether with hypoxia or hypercapnia; Z85.528 Personal history of other malignant neoplasm of kidney; Z91.14 Patient's other noncompliance with medication regimen; Z59.0 Homelessness
CPT/HCPCS: 36415; 71045-TC-FY; 71250-TC; 80053; 80074; 80307; 81003; 82803; 83605; 83615; 83735; 84484; 85025; 85610; 85730; 86359; 86360; 87040; 87070; 87086; 87116; 87205; 87206; 87449; 87536; 87804; 93005; 93010; 94640; 99285-25; J0131; J0735; J7030

== ENCOUNTER 2023-02-08 10:07 | Inpatient (IN) | payer OTHER ==
[2023-02-08 10:37] VITALS: BMI 23.0
[2023-02-08] MEDS ORDERED: guaiFENesin 600 MG TABLET.ER (FP) PO PRN (11:32)
[2023-02-08] MEDS ORDERED: LOPERAMIDE HCL 2 MG CAPSULE PO PRN (11:32)
[2023-02-08] MEDS ORDERED: POLYETHYLENE GLYCOL (HEALTHYLAX) 3350 17 GM PACKET PO PRN (11:32)
[2023-02-08] MEDS ORDERED: BENZOCAINE/MENTHOL (CHLORASEPTIC ) LOZENGE MM PRN (11:32)
[2023-02-08] MEDS ORDERED: AMMONIUM LACTATE 12% LOTION 225 GM BOTTLE TP PRN (11:32)
[2023-02-08] MEDS ORDERED: IBUPROFEN 400 MG TABLET (FP) PO PRN (11:32)
[2023-02-08] MEDS ORDERED: TUBERCULIN PPD 5 TU/0.1ML SYRINGE (IN PATIENT USE ONLY) ID ONE (11:32)
[2023-02-08] MEDS ORDERED: NALOXONE HCL 0.4 MG/ML VIAL IM PRN (11:32)
[2023-02-08] MEDS ORDERED: NALOXONE HCL (KLOXXADO) 8 MG SPRAY NS PRN (11:32)
[2023-02-08] MEDS ORDERED: ACETAMINOPHEN 325 MG TABLET (FP) PO PRN (11:32)
[2023-02-08] MEDS ORDERED: BENZONATATE 200 MG CAPSULE PO PRN (11:32)
[2023-02-08] MEDS ORDERED: NICOTINE 7 MG/24 HOURS TOPICAL PATCH TD ONE (13:02)
[2023-02-08] MEDS ORDERED: PRENATAL VITAMINS W/ FOLIC ACID TABLET (FP) PO ONE (13:02)
[2023-02-08] MEDS: NICOTINE 7 MG/24 HOURS TOPICAL PATCH TD SCH (13:07)
[2023-02-08] MEDS: PRENATAL VITAMINS W/ FOLIC ACID TABLET (FP) PO SCH (13:07)
[2023-02-08] MEDS ORDERED: methaDONE HCL 10 MG TABLET PO SCH (13:45)
[2023-02-08] MEDS ORDERED: methaDONE HCL 10 MG TABLET PO ONE (14:00)
[2023-02-08] MEDS: CLINDAMYCIN HCL 150 MG CAPSULE (FP) PO SCH ×2 (14:37→23:00)
[2023-02-08] MEDS ORDERED: methaDONE 80 MG, methaDONE 10 MG PO ONE (14:45)
[2023-02-08] MEDS: GABAPENTIN 300 MG CAPSULE PO SCH ×2 (15:11→23:00)
[2023-02-08 16:51] LABS: HEMATOCRIT 32.7 % (35.4-49); HEMOGLOBIN 10.5 GM/dL (11.7-16.9); MCH 28.1 pg (25.7-33.7); MCHC 32.1 g/dl (32.0-35.9); MEAN CELL VOLUME 87.7 fl (80-96); MEAN PLT VOLUME 8.1 fl (7.5-11.1); PLATELET COUNT 240 10^3/uL (134-434); RBC 3.73 M/mm3 (4.00-5.60); RDW 13.5 % (11.9-15.9); WHITE BLOOD COUNT 5.1 K/mm3 (4.0-10.0)
[2023-02-08 16:53] LABS: POTASSIUM 3.7 mmol/L (3.5-5.1)
[2023-02-08 17:00] LABS: ALBUMIN 3.5 g/dl (3.4-5.0); BLOOD UREA NITROGEN 16.2 mg/dL (7-18)
[2023-02-08 17:01] LABS: CREATININE 1.2 mg/dL (0.55-1.3)
[2023-02-08 17:03] LABS: TOT PROT 8.8 g/dl (6.4-8.2)
[2023-02-08 17:04] LABS: BILIRUBIN,TOTAL 0.9 mg/dL (0.2-1)
[2023-02-08 17:20] LABS: SYPHILIS W/ RPR CONF NON-REACTIVE (NONREACTIVE)
[2023-02-08] MEDS ORDERED: GABAPENTIN 400 MG CAPSULE PO SCH (22:00)
[2023-02-08] MEDS: THIAMINE HCL 100 MG TABLET (FP) PO SCH (23:00)
[2023-02-08] MEDS: MELATONIN 5 MG TABLETS PO SCH (23:00)
[2023-02-08] MEDS: FERROUS SO4 325 MG TABLET (FP) PO SCH (23:00)
[2023-02-09] MEDS: CLINDAMYCIN HCL 150 MG CAPSULE (FP) PO SCH ×3 (06:37→21:15)
[2023-02-09] MEDS: GABAPENTIN 300 MG CAPSULE PO SCH (06:37)
[2023-02-09] MEDS: methaDONE 80 MG, methaDONE 10 MG PO SCH (06:37)
[2023-02-09] MEDS: FERROUS SO4 325 MG TABLET (FP) PO SCH ×2 (09:40→21:15)
[2023-02-09] MEDS: LISINOPRIL 10 MG TABLET PO SCH (09:40)
[2023-02-09] MEDS: PRENATAL VITAMINS W/ FOLIC ACID TABLET (FP) PO SCH (09:40)
[2023-02-09] MEDS: NICOTINE 7 MG/24 HOURS TOPICAL PATCH TD SCH (09:40)
[2023-02-09] MEDS: ELVITEG/COB/EMTRI/TENOF (GENVOYA) TABLET PO SCH (09:41)
[2023-02-09] MEDS: FUROSEMIDE 20 MG TABLET (FP) PO SCH (10:33)
[2023-02-09] MEDS: BACITRACIN 0.9 GM PACKET TP SCH ×2 (12:25→21:15)
[2023-02-09] MEDS: GABAPENTIN 400 MG CAPSULE PO SCH ×2 (13:25→21:15)
[2023-02-09] MEDS: THIAMINE HCL 100 MG TABLET (FP) PO SCH (21:15)
[2023-02-09] MEDS: MELATONIN 5 MG TABLETS PO SCH (21:15)
[2023-02-10] MEDS: CLINDAMYCIN HCL 150 MG CAPSULE (FP) PO SCH ×3 (06:31→21:25)
[2023-02-10] MEDS: GABAPENTIN 400 MG CAPSULE PO SCH ×3 (06:31→21:25)
[2023-02-10] MEDS: methaDONE 80 MG, methaDONE 10 MG PO SCH (06:32)
[2023-02-10] MEDS: ELVITEG/COB/EMTRI/TENOF (GENVOYA) TABLET PO SCH (07:02)
[2023-02-10] MEDS: BACITRACIN 0.9 GM PACKET TP SCH ×2 (09:32→21:25)
[2023-02-10] MEDS: FUROSEMIDE 20 MG TABLET (FP) PO SCH (09:33)
[2023-02-10] MEDS: FERROUS SO4 325 MG TABLET (FP) PO SCH ×2 (09:33→21:25)
[2023-02-10] MEDS: PRENATAL VITAMINS W/ FOLIC ACID TABLET (FP) PO SCH (09:34)
[2023-02-10] MEDS: NICOTINE 7 MG/24 HOURS TOPICAL PATCH TD SCH (09:34)
[2023-02-10] MEDS: LISINOPRIL 10 MG TABLET PO SCH (09:34)
[2023-02-10] MEDS: NICOTINE POLACRILEX 4 MG GUM BUC PRN (11:22)
[2023-02-10 15:21] LABS: PH,URINE 7.5 (5.0-8.0); URINE APPEARANCE CLEAR; URINE BILIRUBIN NEGATIVE (NEGATIVE); URINE COLOR YELLOW; URINE GLUCOSE (UA) NEGATIVE (NEGATIVE); URINE KETONE NEGATIVE (NEGATIVE); URINE LEUK ESTERASE NEGATIVE (NEGATIVE); URINE NITRITE NEGATIVE (NEGATIVE); URINE PROTEIN NEGATIVE (NEGATIVE); URINE UROBILINOGEN 0.2 mg/dL (0.2-1.0)
[2023-02-10] MEDS: MELATONIN 5 MG TABLETS PO SCH (21:25)
[2023-02-10] MEDS: THIAMINE HCL 100 MG TABLET (FP) PO SCH (21:25)
[2023-02-10] MEDS: MAG HYDROX/AL HYDROX/SIMETH 30 ML UNIT-DOSE CUP PO PRN (21:41)
[2023-02-11] MEDS: methaDONE 80 MG, methaDONE 10 MG PO SCH (06:24)
[2023-02-11] MEDS: GABAPENTIN 400 MG CAPSULE PO SCH ×3 (06:24→21:18)
[2023-02-11] MEDS: CLINDAMYCIN HCL 150 MG CAPSULE (FP) PO SCH ×3 (06:24→21:18)
[2023-02-11] MEDS: NICOTINE 10 MG CARTRIDGE (INHALER) IH PRN ×2 (06:32→21:17)
[2023-02-11] MEDS: ELVITEG/COB/EMTRI/TENOF (GENVOYA) TABLET PO SCH (07:12)
[2023-02-11] MEDS: LISINOPRIL 10 MG TABLET PO SCH (09:37)
[2023-02-11] MEDS: NICOTINE POLACRILEX 4 MG GUM BUC PRN ×3 (09:37→21:21)
[2023-02-11] MEDS: FERROUS SO4 325 MG TABLET (FP) PO SCH ×2 (09:37→21:19)
[2023-02-11] MEDS: NICOTINE 7 MG/24 HOURS TOPICAL PATCH TD SCH (09:37)
[2023-02-11] MEDS: FUROSEMIDE 20 MG TABLET (FP) PO SCH (09:38)
[2023-02-11] MEDS: PRENATAL VITAMINS W/ FOLIC ACID TABLET (FP) PO SCH (09:38)
[2023-02-11] MEDS: BACITRACIN 0.9 GM PACKET TP SCH ×2 (09:39→21:19)
[2023-02-11] MEDS: ARIPiprazole 5 MG TABLET PO SCH (09:39)
[2023-02-11] MEDS: THIAMINE HCL 100 MG TABLET (FP) PO SCH (21:18)
[2023-02-11] MEDS: MELATONIN 5 MG TABLETS PO SCH (21:19)
[2023-02-12] MEDS: GABAPENTIN 400 MG CAPSULE PO SCH ×3 (05:50→21:27)
[2023-02-12] MEDS: methaDONE 80 MG, methaDONE 10 MG PO SCH (05:50)
[2023-02-12] MEDS: CLINDAMYCIN HCL 150 MG CAPSULE (FP) PO SCH ×3 (05:50→21:27)
[2023-02-12] MEDS: ELVITEG/COB/EMTRI/TENOF (GENVOYA) TABLET PO SCH (07:11)
[2023-02-12] MEDS: ARIPiprazole 5 MG TABLET PO SCH (09:44)
[2023-02-12] MEDS: LISINOPRIL 10 MG TABLET PO SCH (09:44)
[2023-02-12] MEDS: NICOTINE 7 MG/24 HOURS TOPICAL PATCH TD SCH (09:44)
[2023-02-12] MEDS: NICOTINE POLACRILEX 4 MG GUM BUC PRN ×2 (09:44→13:42)
[2023-02-12] MEDS: FUROSEMIDE 20 MG TABLET (FP) PO SCH (09:44)
[2023-02-12] MEDS: FERROUS SO4 325 MG TABLET (FP) PO SCH ×2 (09:44→21:26)
[2023-02-12] MEDS: PRENATAL VITAMINS W/ FOLIC ACID TABLET (FP) PO SCH (09:44)
[2023-02-12] MEDS: NICOTINE 10 MG CARTRIDGE (INHALER) IH PRN (09:49)
[2023-02-12] MEDS: BACITRACIN 0.9 GM PACKET TP SCH ×2 (09:54→21:27)
[2023-02-12] MEDS: IBUPROFEN 600 MG TABLET (FP) PO PRN (11:28)
[2023-02-12] MEDS: MELATONIN 5 MG TABLETS PO SCH (21:26)
[2023-02-12] MEDS: THIAMINE HCL 100 MG TABLET (FP) PO SCH (21:26)
[2023-02-13] MEDS: CLINDAMYCIN HCL 150 MG CAPSULE (FP) PO SCH ×3 (05:58→21:31)
[2023-02-13] MEDS: methaDONE 80 MG, methaDONE 10 MG PO SCH (05:59)
[2023-02-13] MEDS: GABAPENTIN 400 MG CAPSULE PO SCH ×3 (05:59→21:32)
[2023-02-13] MEDS: ELVITEG/COB/EMTRI/TENOF (GENVOYA) TABLET PO SCH (07:27)
[2023-02-13] MEDS: ARIPiprazole 5 MG TABLET PO SCH (09:48)
[2023-02-13] MEDS: PRENATAL VITAMINS W/ FOLIC ACID TABLET (FP) PO SCH (09:48)
[2023-02-13] MEDS: FERROUS SO4 325 MG TABLET (FP) PO SCH ×2 (09:48→21:32)
[2023-02-13] MEDS: NICOTINE 7 MG/24 HOURS TOPICAL PATCH TD SCH (09:48)
[2023-02-13] MEDS: BACITRACIN 0.9 GM PACKET TP SCH ×2 (09:48→21:33)
[2023-02-13] MEDS: FUROSEMIDE 20 MG TABLET (FP) PO SCH (09:48)
[2023-02-13] MEDS: LISINOPRIL 10 MG TABLET PO SCH (09:48)
[2023-02-13] MEDS: NICOTINE POLACRILEX 4 MG GUM BUC PRN (13:15)
[2023-02-13] MEDS: NICOTINE 10 MG CARTRIDGE (INHALER) IH PRN ×2 (13:15→21:33)
[2023-02-13] MEDS: MELATONIN 5 MG TABLETS PO SCH (21:31)
[2023-02-13] MEDS: THIAMINE HCL 100 MG TABLET (FP) PO SCH (21:31)
[2023-02-14] MEDS: GABAPENTIN 400 MG CAPSULE PO SCH ×3 (06:35→21:22)
[2023-02-14] MEDS: methaDONE 80 MG, methaDONE 10 MG PO SCH (06:35)
[2023-02-14] MEDS: CLINDAMYCIN HCL 150 MG CAPSULE (FP) PO SCH (06:35)
[2023-02-14] MEDS: ELVITEG/COB/EMTRI/TENOF (GENVOYA) TABLET PO SCH (07:03)
[2023-02-14] MEDS: NICOTINE 10 MG CARTRIDGE (INHALER) IH PRN (09:35)
[2023-02-14] MEDS: LISINOPRIL 10 MG TABLET PO SCH (09:36)
[2023-02-14] MEDS: FUROSEMIDE 20 MG TABLET (FP) PO SCH (09:36)
[2023-02-14] MEDS: ARIPiprazole 5 MG TABLET PO SCH (09:36)
[2023-02-14] MEDS: PRENATAL VITAMINS W/ FOLIC ACID TABLET (FP) PO SCH (09:37)
[2023-02-14] MEDS: NICOTINE 7 MG/24 HOURS TOPICAL PATCH TD SCH (09:37)
[2023-02-14] MEDS: FERROUS SO4 325 MG TABLET (FP) PO SCH ×2 (09:38→21:23)
[2023-02-14] MEDS: BACITRACIN 0.9 GM PACKET TP SCH ×2 (09:38→21:22)
[2023-02-14] MEDS: NICOTINE POLACRILEX 4 MG GUM BUC PRN ×4 (09:40→21:24)
[2023-02-14] MEDS: MAG HYDROX/AL HYDROX/SIMETH 30 ML UNIT-DOSE CUP PO PRN (13:46)
[2023-02-14] MEDS: THIAMINE HCL 100 MG TABLET (FP) PO SCH (21:23)
[2023-02-14] MEDS: MELATONIN 5 MG TABLETS PO SCH (21:23)
[2023-02-15] MEDS: hydrOXYzine PAMOATE 25 MG CAPSULE (FP) PO PRN (01:05)
[2023-02-15] MEDS: GABAPENTIN 400 MG CAPSULE PO SCH ×3 (06:32→21:29)
[2023-02-15] MEDS: methaDONE 80 MG, methaDONE 10 MG PO SCH (06:33)
[2023-02-15] MEDS: ELVITEG/COB/EMTRI/TENOF (GENVOYA) TABLET PO SCH (07:17)
[2023-02-15] MEDS: FERROUS SO4 325 MG TABLET (FP) PO SCH ×2 (09:13→21:29)
[2023-02-15] MEDS: NICOTINE 7 MG/24 HOURS TOPICAL PATCH TD SCH (09:13)
[2023-02-15] MEDS: PRENATAL VITAMINS W/ FOLIC ACID TABLET (FP) PO SCH (09:13)
[2023-02-15] MEDS: ARIPiprazole 5 MG TABLET PO SCH (09:13)
[2023-02-15] MEDS: LISINOPRIL 10 MG TABLET PO SCH (09:13)
[2023-02-15] MEDS: MAGNESIUM HYDROX 2400MG/30ML ORAL SUSPENSION 30 ML CUP PO PRN (09:14)
[2023-02-15] MEDS: FUROSEMIDE 20 MG TABLET (FP) PO SCH (09:14)
[2023-02-15] MEDS: BACITRACIN 0.9 GM PACKET TP SCH ×2 (09:15→21:31)
[2023-02-15] MEDS: NICOTINE POLACRILEX 4 MG GUM BUC PRN ×2 (09:16→13:09)
[2023-02-15] MEDS: COLLOIDAL OATMEAL 1 BAR EACH TP PRN (09:42)
[2023-02-15] MEDS: NICOTINE 10 MG CARTRIDGE (INHALER) IH PRN (13:08)
[2023-02-15] MEDS: METHOCARBAMOL 750 MG TABLET PO SCH ×2 (18:20→21:30)
[2023-02-15] MEDS: THIAMINE HCL 100 MG TABLET (FP) PO SCH (21:29)
[2023-02-15] MEDS: MELATONIN 5 MG TABLETS PO SCH (21:30)
[2023-02-16] MEDS: methaDONE 80 MG, methaDONE 10 MG PO SCH (06:29)
[2023-02-16] MEDS: GABAPENTIN 400 MG CAPSULE PO SCH ×3 (06:29→21:31)
[2023-02-16] MEDS: ELVITEG/COB/EMTRI/TENOF (GENVOYA) TABLET PO SCH (07:08)
[2023-02-16] MEDS: FERROUS SO4 325 MG TABLET (FP) PO SCH ×2 (09:27→21:31)
[2023-02-16] MEDS: METHOCARBAMOL 750 MG TABLET PO SCH ×4 (09:27→21:32)
[2023-02-16] MEDS: ARIPiprazole 5 MG TABLET PO SCH (09:27)
[2023-02-16] MEDS: FUROSEMIDE 20 MG TABLET (FP) PO SCH (09:27)
[2023-02-16] MEDS: NICOTINE 7 MG/24 HOURS TOPICAL PATCH TD SCH (09:28)
[2023-02-16] MEDS: PRENATAL VITAMINS W/ FOLIC ACID TABLET (FP) PO SCH (09:28)
[2023-02-16] MEDS: LISINOPRIL 10 MG TABLET PO SCH (09:28)
[2023-02-16] MEDS: NICOTINE POLACRILEX 4 MG GUM BUC PRN ×3 (09:29→21:33)
[2023-02-16] MEDS: BACITRACIN 0.9 GM PACKET TP SCH ×2 (09:29→21:31)
[2023-02-16] MEDS: NICOTINE 10 MG CARTRIDGE (INHALER) IH PRN (17:57)
[2023-02-16] MEDS: MELATONIN 5 MG TABLETS PO SCH (21:31)
[2023-02-16] MEDS: THIAMINE HCL 100 MG TABLET (FP) PO SCH (21:31)
[2023-02-17] MEDS: methaDONE 80 MG, methaDONE 10 MG PO SCH (06:28)
[2023-02-17] MEDS: GABAPENTIN 400 MG CAPSULE PO SCH ×3 (06:29→21:21)
[2023-02-17] MEDS: ELVITEG/COB/EMTRI/TENOF (GENVOYA) TABLET PO SCH (07:16)
[2023-02-17] MEDS: PRENATAL VITAMINS W/ FOLIC ACID TABLET (FP) PO SCH (09:53)
[2023-02-17] MEDS: LISINOPRIL 10 MG TABLET PO SCH (09:53)
[2023-02-17] MEDS: ARIPiprazole 5 MG TABLET PO SCH (09:53)
[2023-02-17] MEDS: FERROUS SO4 325 MG TABLET (FP) PO SCH ×2 (09:53→21:21)
[2023-02-17] MEDS: NICOTINE 7 MG/24 HOURS TOPICAL PATCH TD SCH (09:54)
[2023-02-17] MEDS: METHOCARBAMOL 750 MG TABLET PO SCH ×4 (09:54→21:22)
[2023-02-17] MEDS: FUROSEMIDE 20 MG TABLET (FP) PO SCH (09:55)
[2023-02-17] MEDS: NICOTINE POLACRILEX 4 MG GUM BUC PRN ×3 (09:56→21:25)
[2023-02-17] MEDS: NICOTINE 10 MG CARTRIDGE (INHALER) IH PRN (10:08)
[2023-02-17] MEDS: MELATONIN 5 MG TABLETS PO SCH (21:20)
[2023-02-17] MEDS: THIAMINE HCL 100 MG TABLET (FP) PO SCH (21:22)
[2023-02-18] MEDS: methaDONE 80 MG, methaDONE 10 MG PO SCH (06:10)
[2023-02-18] MEDS: GABAPENTIN 400 MG CAPSULE PO SCH ×3 (06:10→21:01)
[2023-02-18] MEDS: NICOTINE POLACRILEX 4 MG GUM BUC PRN ×4 (06:13→21:03)
[2023-02-18] MEDS: ELVITEG/COB/EMTRI/TENOF (GENVOYA) TABLET PO SCH (07:18)
[2023-02-18] MEDS: ARIPiprazole 5 MG TABLET PO SCH (10:12)
[2023-02-18] MEDS: NICOTINE 7 MG/24 HOURS TOPICAL PATCH TD SCH (10:12)
[2023-02-18] MEDS: LISINOPRIL 10 MG TABLET PO SCH (10:12)
[2023-02-18] MEDS: METHOCARBAMOL 750 MG TABLET PO SCH ×4 (10:13→21:02)
[2023-02-18] MEDS: FUROSEMIDE 20 MG TABLET (FP) PO SCH (10:13)
[2023-02-18] MEDS: FERROUS SO4 325 MG TABLET (FP) PO SCH ×2 (10:13→21:01)
[2023-02-18] MEDS: PRENATAL VITAMINS W/ FOLIC ACID TABLET (FP) PO SCH (10:13)
[2023-02-18] MEDS: NICOTINE 10 MG CARTRIDGE (INHALER) IH PRN (10:16)
[2023-02-18] MEDS: MELATONIN 5 MG TABLETS PO SCH (21:00)
[2023-02-18] MEDS: THIAMINE HCL 100 MG TABLET (FP) PO SCH (21:00)
[2023-02-18] MEDS ORDERED: SUVOREXANT 10 MG TABLET PO PRN (22:00)
[2023-02-19] MEDS: methaDONE 80 MG, methaDONE 10 MG PO SCH (06:38)
[2023-02-19] MEDS: GABAPENTIN 400 MG CAPSULE PO SCH ×3 (06:38→21:24)
[2023-02-19] MEDS: ELVITEG/COB/EMTRI/TENOF (GENVOYA) TABLET PO SCH (07:00)
[2023-02-19] MEDS: NICOTINE 7 MG/24 HOURS TOPICAL PATCH TD SCH (09:35)
[2023-02-19] MEDS: METHOCARBAMOL 750 MG TABLET PO SCH ×4 (09:35→21:24)
[2023-02-19] MEDS: NICOTINE POLACRILEX 4 MG GUM BUC PRN ×2 (09:36→21:26)
[2023-02-19] MEDS: FERROUS SO4 325 MG TABLET (FP) PO SCH ×2 (09:36→21:24)
[2023-02-19] MEDS: PRENATAL VITAMINS W/ FOLIC ACID TABLET (FP) PO SCH (09:36)
[2023-02-19] MEDS: ARIPiprazole 5 MG TABLET PO SCH (09:36)
[2023-02-19] MEDS: LISINOPRIL 10 MG TABLET PO SCH (09:36)
[2023-02-19] MEDS: FUROSEMIDE 20 MG TABLET (FP) PO SCH (10:57)
[2023-02-19] MEDS: MELATONIN 5 MG TABLETS PO SCH (21:24)
[2023-02-19] MEDS: THIAMINE HCL 100 MG TABLET (FP) PO SCH (21:24)
[2023-02-20] MEDS: methaDONE 80 MG, methaDONE 10 MG PO SCH (06:46)
[2023-02-20] MEDS: GABAPENTIN 400 MG CAPSULE PO SCH ×3 (06:46→21:20)
[2023-02-20] MEDS: NICOTINE POLACRILEX 4 MG GUM BUC PRN ×4 (06:48→21:21)
[2023-02-20] MEDS: ELVITEG/COB/EMTRI/TENOF (GENVOYA) TABLET PO SCH (07:03)
[2023-02-20] MEDS: LISINOPRIL 10 MG TABLET PO SCH (09:42)
[2023-02-20] MEDS: FUROSEMIDE 20 MG TABLET (FP) PO SCH (09:42)
[2023-02-20] MEDS: ARIPiprazole 5 MG TABLET PO SCH (09:42)
[2023-02-20] MEDS: FERROUS SO4 325 MG TABLET (FP) PO SCH ×2 (09:42→21:20)
[2023-02-20] MEDS: NICOTINE 7 MG/24 HOURS TOPICAL PATCH TD SCH (09:42)
[2023-02-20] MEDS: METHOCARBAMOL 750 MG TABLET PO SCH ×4 (09:43→21:20)
[2023-02-20] MEDS: PRENATAL VITAMINS W/ FOLIC ACID TABLET (FP) PO SCH (09:43)
[2023-02-20] MEDS: THIAMINE HCL 100 MG TABLET (FP) PO SCH (21:20)
[2023-02-20] MEDS: MELATONIN 5 MG TABLETS PO SCH (21:20)
[2023-02-21] MEDS: methaDONE 80 MG, methaDONE 10 MG PO SCH (05:59)
[2023-02-21] MEDS: GABAPENTIN 400 MG CAPSULE PO SCH ×3 (05:59→21:05)
[2023-02-21] MEDS ORDERED: methaDONE HCL 10 MG TABLET PO SCH (06:00)
[2023-02-21] MEDS: NICOTINE POLACRILEX 4 MG GUM BUC PRN ×4 (06:01→21:07)
[2023-02-21] MEDS: ELVITEG/COB/EMTRI/TENOF (GENVOYA) TABLET PO SCH (07:14)
[2023-02-21] MEDS: FERROUS SO4 325 MG TABLET (FP) PO SCH ×2 (09:41→21:05)
[2023-02-21] MEDS: METHOCARBAMOL 750 MG TABLET PO SCH ×4 (09:42→21:05)
[2023-02-21] MEDS: NICOTINE 7 MG/24 HOURS TOPICAL PATCH TD SCH (09:42)
[2023-02-21] MEDS: LISINOPRIL 10 MG TABLET PO SCH (09:42)
[2023-02-21] MEDS: FUROSEMIDE 20 MG TABLET (FP) PO SCH (09:42)
[2023-02-21] MEDS: PRENATAL VITAMINS W/ FOLIC ACID TABLET (FP) PO SCH (09:42)
[2023-02-21] MEDS: ARIPiprazole 5 MG TABLET PO SCH (10:25)
[2023-02-21] MEDS: MAGNESIUM HYDROX 2400MG/30ML ORAL SUSPENSION 30 ML CUP PO PRN (11:41)
[2023-02-21] MEDS: THIAMINE HCL 100 MG TABLET (FP) PO SCH (21:05)
[2023-02-21] MEDS: MELATONIN 5 MG TABLETS PO SCH (21:05)
[2023-02-21] MEDS: SUVOREXANT 10 MG TABLET PO PRN (21:07)
[2023-02-21] MEDS: NICOTINE 10 MG CARTRIDGE (INHALER) IH PRN (21:47)
[2023-02-22] MEDS: GABAPENTIN 400 MG CAPSULE PO SCH ×3 (06:18→21:16)
[2023-02-22] MEDS: methaDONE 80 MG, methaDONE 10 MG PO SCH (06:18)
[2023-02-22] MEDS: ELVITEG/COB/EMTRI/TENOF (GENVOYA) TABLET PO SCH (07:02)
[2023-02-22] MEDS: PRENATAL VITAMINS W/ FOLIC ACID TABLET (FP) PO SCH (09:52)
[2023-02-22] MEDS: FERROUS SO4 325 MG TABLET (FP) PO SCH ×2 (09:52→21:17)
[2023-02-22] MEDS: NICOTINE 7 MG/24 HOURS TOPICAL PATCH TD SCH (09:52)
[2023-02-22] MEDS: LISINOPRIL 10 MG TABLET PO SCH (09:52)
[2023-02-22] MEDS: ARIPiprazole 5 MG TABLET PO SCH (09:53)
[2023-02-22] MEDS: hydrOXYzine PAMOATE 25 MG CAPSULE (FP) PO PRN (09:54)
[2023-02-22] MEDS: NICOTINE 10 MG CARTRIDGE (INHALER) IH PRN (09:55)
[2023-02-22] MEDS: FUROSEMIDE 20 MG TABLET (FP) PO SCH (11:00)
[2023-02-22] MEDS: METHOCARBAMOL 750 MG TABLET PO SCH ×4 (11:00→21:17)
[2023-02-22] MEDS: NICOTINE POLACRILEX 4 MG GUM BUC PRN (11:03)
[2023-02-22] MEDS: MAG HYDROX/AL HYDROX/SIMETH 30 ML UNIT-DOSE CUP PO PRN (13:05)
[2023-02-22] MEDS: THIAMINE HCL 100 MG TABLET (FP) PO SCH (21:16)
[2023-02-22] MEDS: MELATONIN 5 MG TABLETS PO SCH (21:16)
[2023-02-22] MEDS: SUVOREXANT 10 MG TABLET PO PRN (21:17)
[2023-02-23] MEDS: methaDONE 80 MG, methaDONE 10 MG PO SCH (06:09)
[2023-02-23] MEDS: GABAPENTIN 400 MG CAPSULE PO SCH ×3 (06:09→21:06)
[2023-02-23] MEDS: ELVITEG/COB/EMTRI/TENOF (GENVOYA) TABLET PO SCH (07:15)
[2023-02-23] MEDS: ARIPiprazole 5 MG TABLET PO SCH (09:57)
[2023-02-23] MEDS: FUROSEMIDE 20 MG TABLET (FP) PO SCH (09:57)
[2023-02-23] MEDS: FERROUS SO4 325 MG TABLET (FP) PO SCH ×2 (09:57→21:06)
[2023-02-23] MEDS: PRENATAL VITAMINS W/ FOLIC ACID TABLET (FP) PO SCH (09:58)
[2023-02-23] MEDS: METHOCARBAMOL 750 MG TABLET PO SCH ×4 (09:58→21:06)
[2023-02-23] MEDS: LISINOPRIL 10 MG TABLET PO SCH (09:58)
[2023-02-23] MEDS: NICOTINE 7 MG/24 HOURS TOPICAL PATCH TD SCH (09:58)
[2023-02-23] MEDS: NICOTINE POLACRILEX 4 MG GUM BUC PRN ×3 (10:00→21:07)
[2023-02-23] MEDS: NICOTINE 10 MG CARTRIDGE (INHALER) IH PRN (13:49)
[2023-02-23] MEDS: MELATONIN 5 MG TABLETS PO SCH (21:06)
[2023-02-23] MEDS: THIAMINE HCL 100 MG TABLET (FP) PO SCH (21:06)
[2023-02-23] MEDS: SUVOREXANT 10 MG TABLET PO PRN (21:07)
[2023-02-24] MEDS: methaDONE 80 MG, methaDONE 10 MG PO SCH (06:43)
[2023-02-24] MEDS: GABAPENTIN 400 MG CAPSULE PO SCH ×3 (06:44→21:18)
[2023-02-24] MEDS: ELVITEG/COB/EMTRI/TENOF (GENVOYA) TABLET PO SCH (07:54)
[2023-02-24] MEDS: FERROUS SO4 325 MG TABLET (FP) PO SCH ×2 (10:06→21:18)
[2023-02-24] MEDS: ARIPiprazole 5 MG TABLET PO SCH (10:06)
[2023-02-24] MEDS: PRENATAL VITAMINS W/ FOLIC ACID TABLET (FP) PO SCH (10:07)
[2023-02-24] MEDS: LISINOPRIL 10 MG TABLET PO SCH (10:07)
[2023-02-24] MEDS: FUROSEMIDE 20 MG TABLET (FP) PO SCH (10:07)
[2023-02-24] MEDS: NICOTINE 7 MG/24 HOURS TOPICAL PATCH TD SCH (10:07)
[2023-02-24] MEDS: METHOCARBAMOL 750 MG TABLET PO SCH ×4 (10:07→21:17)
[2023-02-24] MEDS: NICOTINE POLACRILEX 4 MG GUM BUC PRN ×3 (10:08→18:11)
[2023-02-24] MEDS: MELATONIN 5 MG TABLETS PO SCH (21:17)
[2023-02-24] MEDS: THIAMINE HCL 100 MG TABLET (FP) PO SCH (21:17)
[2023-02-24] MEDS: SUVOREXANT 10 MG TABLET PO PRN (21:18)
[2023-02-25] MEDS: methaDONE 80 MG, methaDONE 10 MG PO SCH (06:38)
[2023-02-25] MEDS: GABAPENTIN 400 MG CAPSULE PO SCH ×3 (06:38→21:07)
[2023-02-25] MEDS: ELVITEG/COB/EMTRI/TENOF (GENVOYA) TABLET PO SCH (07:01)
[2023-02-25] MEDS: FUROSEMIDE 20 MG TABLET (FP) PO SCH (09:46)
[2023-02-25] MEDS: PRENATAL VITAMINS W/ FOLIC ACID TABLET (FP) PO SCH (09:46)
[2023-02-25] MEDS: NICOTINE 7 MG/24 HOURS TOPICAL PATCH TD SCH (09:46)
[2023-02-25] MEDS: LISINOPRIL 10 MG TABLET PO SCH (09:46)
[2023-02-25] MEDS: ARIPiprazole 5 MG TABLET PO SCH (09:46)
[2023-02-25] MEDS: METHOCARBAMOL 750 MG TABLET PO SCH ×4 (09:46→21:07)
[2023-02-25] MEDS: FERROUS SO4 325 MG TABLET (FP) PO SCH ×2 (09:46→21:07)
[2023-02-25] MEDS: NICOTINE POLACRILEX 4 MG GUM BUC PRN ×2 (09:49→21:09)
[2023-02-25] MEDS: IBUPROFEN 600 MG TABLET (FP) PO PRN (11:06)
[2023-02-25] MEDS: COLLOIDAL OATMEAL 1 BAR EACH TP PRN (11:18)
[2023-02-25] MEDS ORDERED: NICOTINE 7 MG/24 HOURS TOPICAL PATCH TD PRN (13:30)
[2023-02-25] MEDS: THIAMINE HCL 100 MG TABLET (FP) PO SCH (21:07)
[2023-02-25] MEDS: SUVOREXANT 10 MG TABLET PO PRN (21:07)
[2023-02-25] MEDS: MELATONIN 5 MG TABLETS PO SCH (21:07)
[2023-02-26] MEDS: MAG HYDROX/AL HYDROX/SIMETH 30 ML UNIT-DOSE CUP PO PRN (00:53)
[2023-02-26] MEDS: methaDONE 80 MG, methaDONE 10 MG PO SCH (06:37)
[2023-02-26] MEDS: GABAPENTIN 400 MG CAPSULE PO SCH ×3 (06:37→21:06)
[2023-02-26] MEDS: ELVITEG/COB/EMTRI/TENOF (GENVOYA) TABLET PO SCH (07:13)
[2023-02-26] MEDS: FERROUS SO4 325 MG TABLET (FP) PO SCH ×2 (09:37→21:06)
[2023-02-26] MEDS: ARIPiprazole 5 MG TABLET PO SCH (09:37)
[2023-02-26] MEDS: FUROSEMIDE 20 MG TABLET (FP) PO SCH (09:38)
[2023-02-26] MEDS: LISINOPRIL 10 MG TABLET PO SCH (09:38)
[2023-02-26] MEDS: PRENATAL VITAMINS W/ FOLIC ACID TABLET (FP) PO SCH (09:38)
[2023-02-26] MEDS: METHOCARBAMOL 750 MG TABLET PO SCH ×4 (09:38→21:06)
[2023-02-26] MEDS: NICOTINE POLACRILEX 4 MG GUM BUC PRN ×3 (09:39→21:07)
[2023-02-26] MEDS: THIAMINE HCL 100 MG TABLET (FP) PO SCH (21:05)
[2023-02-26] MEDS: MELATONIN 5 MG TABLETS PO SCH (21:05)
[2023-02-26] MEDS: NICOTINE 10 MG CARTRIDGE (INHALER) IH PRN (21:07)
[2023-02-26] MEDS: SUVOREXANT 10 MG TABLET PO PRN (21:07)
[2023-02-27] MEDS: methaDONE 80 MG, methaDONE 10 MG PO SCH (05:52)
[2023-02-27] MEDS: GABAPENTIN 400 MG CAPSULE PO SCH ×3 (05:52→21:08)
[2023-02-27] MEDS: NICOTINE POLACRILEX 4 MG GUM BUC PRN ×2 (05:54→21:10)
[2023-02-27] MEDS: ELVITEG/COB/EMTRI/TENOF (GENVOYA) TABLET PO SCH (07:04)
[2023-02-27] MEDS: FERROUS SO4 325 MG TABLET (FP) PO SCH ×2 (09:01→21:08)
[2023-02-27] MEDS: ARIPiprazole 5 MG TABLET PO SCH (09:01)
[2023-02-27] MEDS: LISINOPRIL 10 MG TABLET PO SCH (09:01)
[2023-02-27] MEDS: FUROSEMIDE 20 MG TABLET (FP) PO SCH (09:01)
[2023-02-27] MEDS: METHOCARBAMOL 750 MG TABLET PO SCH ×4 (09:02→21:08)
[2023-02-27] MEDS: PRENATAL VITAMINS W/ FOLIC ACID TABLET (FP) PO SCH (09:02)
[2023-02-27] MEDS: MAG HYDROX/AL HYDROX/SIMETH 30 ML UNIT-DOSE CUP PO PRN (09:51)
[2023-02-27] MEDS: MELATONIN 5 MG TABLETS PO SCH (21:08)
[2023-02-27] MEDS: THIAMINE HCL 100 MG TABLET (FP) PO SCH (21:08)
[2023-02-27] MEDS: SUVOREXANT 10 MG TABLET PO PRN (21:09)
[2023-02-27] MEDS: NICOTINE 10 MG CARTRIDGE (INHALER) IH PRN (21:09)
[2023-02-28] MEDS: GABAPENTIN 400 MG CAPSULE PO SCH ×3 (06:30→21:02)
[2023-02-28] MEDS: methaDONE 80 MG, methaDONE 10 MG PO SCH (06:30)
[2023-02-28] MEDS: ELVITEG/COB/EMTRI/TENOF (GENVOYA) TABLET PO SCH (07:07)
[2023-02-28] MEDS: FERROUS SO4 325 MG TABLET (FP) PO SCH ×2 (10:40→21:02)
[2023-02-28] MEDS: LISINOPRIL 10 MG TABLET PO SCH (10:40)
[2023-02-28] MEDS: METHOCARBAMOL 750 MG TABLET PO SCH ×4 (10:41→21:02)
[2023-02-28] MEDS: FUROSEMIDE 20 MG TABLET (FP) PO SCH (10:41)
[2023-02-28] MEDS: ARIPiprazole 5 MG TABLET PO SCH (10:41)
[2023-02-28] MEDS: PRENATAL VITAMINS W/ FOLIC ACID TABLET (FP) PO SCH (10:42)
[2023-02-28] MEDS: NICOTINE 10 MG CARTRIDGE (INHALER) IH PRN ×2 (10:42→21:01)
[2023-02-28] MEDS: NICOTINE POLACRILEX 4 MG GUM BUC PRN ×3 (10:43→21:04)
[2023-02-28] MEDS: THIAMINE HCL 100 MG TABLET (FP) PO SCH (21:02)
[2023-02-28] MEDS: MELATONIN 5 MG TABLETS PO SCH (21:02)
[2023-02-28] MEDS: SUVOREXANT 10 MG TABLET PO PRN (21:03)
[2023-03-01] MEDS: methaDONE 80 MG, methaDONE 10 MG PO SCH (06:10)
[2023-03-01] MEDS: GABAPENTIN 400 MG CAPSULE PO SCH ×3 (06:10→21:32)
[2023-03-01] MEDS: ELVITEG/COB/EMTRI/TENOF (GENVOYA) TABLET PO SCH (07:23)
[2023-03-01] MEDS: ARIPiprazole 5 MG TABLET PO SCH (09:35)
[2023-03-01] MEDS: FERROUS SO4 325 MG TABLET (FP) PO SCH ×2 (09:36→21:32)
[2023-03-01] MEDS: PRENATAL VITAMINS W/ FOLIC ACID TABLET (FP) PO SCH (09:36)
[2023-03-01] MEDS: LISINOPRIL 10 MG TABLET PO SCH (09:36)
[2023-03-01] MEDS: FUROSEMIDE 20 MG TABLET (FP) PO SCH (09:36)
[2023-03-01] MEDS: NICOTINE POLACRILEX 4 MG GUM BUC PRN ×3 (09:37→21:35)
[2023-03-01] MEDS: METHOCARBAMOL 750 MG TABLET PO SCH ×4 (09:37→21:32)
[2023-03-01] MEDS: THIAMINE HCL 100 MG TABLET (FP) PO SCH (21:32)
[2023-03-01] MEDS: MELATONIN 5 MG TABLETS PO SCH (21:32)
[2023-03-01] MEDS: SUVOREXANT 10 MG TABLET PO PRN (21:34)
[2023-03-02] MEDS: methaDONE 80 MG, methaDONE 10 MG PO SCH (06:37)
[2023-03-02] MEDS: GABAPENTIN 400 MG CAPSULE PO SCH ×3 (06:38→21:06)
[2023-03-02] MEDS: NICOTINE POLACRILEX 4 MG GUM BUC PRN ×3 (06:40→13:58)
[2023-03-02] MEDS: ELVITEG/COB/EMTRI/TENOF (GENVOYA) TABLET PO SCH (07:19)
[2023-03-02] MEDS: FERROUS SO4 325 MG TABLET (FP) PO SCH ×2 (10:04→21:06)
[2023-03-02] MEDS: ARIPiprazole 5 MG TABLET PO SCH (10:04)
[2023-03-02] MEDS: METHOCARBAMOL 750 MG TABLET PO SCH ×4 (10:04→21:07)
[2023-03-02] MEDS: LISINOPRIL 10 MG TABLET PO SCH (10:04)
[2023-03-02] MEDS: PRENATAL VITAMINS W/ FOLIC ACID TABLET (FP) PO SCH (10:05)
[2023-03-02] MEDS: FUROSEMIDE 20 MG TABLET (FP) PO SCH (11:02)
[2023-03-02] MEDS: THIAMINE HCL 100 MG TABLET (FP) PO SCH (21:05)
[2023-03-02] MEDS: MELATONIN 5 MG TABLETS PO SCH (21:06)
[2023-03-03] MEDS: methaDONE 80 MG, methaDONE 10 MG PO SCH (06:26)
[2023-03-03] MEDS: GABAPENTIN 400 MG CAPSULE PO SCH (06:28)
[2023-03-03 06:42] VITALS: TEMP 97.2
[2023-03-03] MEDS: ELVITEG/COB/EMTRI/TENOF (GENVOYA) TABLET PO SCH (07:08)
[2023-03-03] MEDS: NICOTINE POLACRILEX 4 MG GUM BUC PRN (08:39)
[2023-03-03 08:57] VITALS: BP 119/74; PULSE 76; RESP 18
[2023-03-03] MEDS: PRENATAL VITAMINS W/ FOLIC ACID TABLET (FP) PO SCH (09:07)
[2023-03-03] MEDS: LISINOPRIL 10 MG TABLET PO SCH (09:08)
[2023-03-03] MEDS: FERROUS SO4 325 MG TABLET (FP) PO SCH (09:08)
[2023-03-03] MEDS: ARIPiprazole 5 MG TABLET PO SCH (09:08)
[2023-03-03] MEDS: METHOCARBAMOL 750 MG TABLET PO SCH (09:09)
[2023-03-03] MEDS: FUROSEMIDE 20 MG TABLET (FP) PO SCH (09:10)
== END 2023-03-03 09:20 | disposition home or self-care (01) | DRG 772 ==
LOC: YASAS 10:07 → Y3E 12:32
PROVIDERS: ADMIT Allergy & Immunology; ATTEND Psychiatry & Neurology Pain Medicine
PROC: HZ42ZZZ Group Counseling for Substance Abuse Treatment, Cognitive-Behavioral (ICD-10-PCS; principal; 2023-02-08)
DX: F11.20 Opioid dependence, uncomplicated (principal); F14.20 Cocaine dependence, uncomplicated; F12.20 Cannabis dependence, uncomplicated; F17.210 Nicotine dependence, cigarettes, uncomplicated; B20 Human immunodeficiency virus [HIV] disease; Z79.899 Other long term (current) drug therapy; D64.9 Anemia, unspecified; G47.00 Insomnia, unspecified; I10 Essential (primary) hypertension; L03.115 Cellulitis of right lower limb; L03.116 Cellulitis of left lower limb; B18.2 Chronic viral hepatitis C; M62.838 Other muscle spasm; R60.0 Localized edema; Z85.528 Personal history of other malignant neoplasm of kidney; Z59.02 Unsheltered homelessness; S22.32XD Fracture of one rib, left side, subsequent encounter for fracture with routine healing; X99.9XXD Assault by unspecified sharp object, subsequent encounter
CPT/HCPCS: 36415; 71046-TC-FY; 71111-TC-FY; 80053; 81003; 82962; 85027; 86780; 86803; 87522; 87635; 87811; 93005; 93010